=== PATIENT | male | born 1950 | race Hispanic/Latino ===

== ENCOUNTER 2017-10-02 14:04 | Inpatient (IN) | payer MEDICARE, OTHER ==
--- NOTE | 2017-10-02 14:18 | ED PDOC ---
Arrival/HPI - General Chief Complaint: Altered Mental Status Time Seen by Provider: 10/02/17 14:10 Historian: Patient, EMS EM Caveat: Altered Mental Status - History of Present Illness Narrative History of Present Illness (Text): 10/02/17 14:12 pt p/w + AMS prior to ED arrival; per EMS, pt's son contacted EMS due to pt's decr mentation, unable to talk, difficult to arouse; pt arrived to the ED awake/ alert; pt is conversant; pt did not remember what happen; pt states he was watching TV prior to ED arrival; pt states he was mildly nausea prior to ED arrival; pt states no fever/chills/sweats, no pain, no cp/abd pain, no sob, no vomiting, pt does not feel like he is having a hard time speaking; pt states no urinary/bowel changes; pt arrived to ED for further eval; pt's without other complaints. Spouse arrived at bedside, provided further information - states patient missed his dialysis 2 days ago b/c he was too weak and didnt feel well; noted 1 episode of dark/chocolate colored stool 2 days ago; pt has been having mid- epigastric pain/cramps off and on over the last few weeks. pt has had starring spells for a while now and sees Dr Holland for possible seizures (complex/partial) pt denied other complaints PCP: DR Mejia pt is left hand dominate pt with multiple previous CVAs ESRD, on dialysis M/W/F, pt is due for dialysis at 2pm Time/Duration: Prior to Arrival Symptom Onset: Sudden Symptom Course: Improving Activities at Onset: Rest Context: Home Past Medical History - Provider Review Nursing Documentation Reviewed: Yes - Travel History Have you recently traveled outside [place] w/in the past 3 mons?: No - Past History Past History: No Previous - Infectious Disease Hx of Infectious Diseases: None - Cardiac Hx Cardiac Disorders: (angioplasty 1989) Hx Hypertension: Yes - Neurological Hx Neurological Disorder: Yes (short term memory loss) HX Cerebrovascular Accident: Yes (around 1991 right side weakness) Hx Dizziness: Yes (syncope) Hx Transient Ischemic Attacks (TIA): Yes (several) Other/Comment: poor hand eye coordination, pt suffered heat stroke and when brought to the hospital was found to have had several small strokes in the past , pt was unaware, headaches, slurred speech, peripheral neuropathy, right side paralysis, numbness. - HEENT Hx HEENT Disorder: Yes (ringing in the ears) - Renal Date of Last Dialysis Treatment: 12/22/13 - Endocrine/Metabolic Hx Endocrine Disorders: Yes Hx Diabetes Mellitus Type 1: Yes - Integumentary Other/Comment: bottom of feet and toes have dryed brown skin bilateral - Musculoskeletal/Rheumatological Hx Falls: No - Genitourinary/Gynecological Hx Genitourinary Disorders: Yes - Psychiatric Hx Substance Use: No - Surgical History Other/Comment: hd cath implanted in 2009 for possible dialysis right arm - Suicidal Assessment Feels Threatened In Home Enviroment: No Family/Social History - Physician Review Nursing Documentation Reviewed: Yes Family/Social History: No Known Family HX Smoking Status: Light Smoker < 10 Cigarettes Daily Hx Alcohol Use: No Hx Substance Use: No Hx Substance Use Treatment: No Allergies/Home Meds Allergies/Adverse Reactions: Allergies No Known Allergies Allergy (Verified 10/02/17 14:18) Home Medications: Home Meds Medication Instructions Recorded Confirmed Enalapril Maleate [Enalapril] 20 mg PO BID 10/22/11 10/02/17 Meclizine HCl [Antivert/25] 25 mg PO PRN PRN 10/22/11 10/22/11 Tamsulosin [Flomax] 0.4 mg PO DAILY 10/22/11 10/02/17 Cinacalcet [Sensipar] 30 mg PO DAILY 10/02/17 10/02/17 Fenofibrate Nanocrystallized 160 mg PO DAILY 10/02/17 10/02/17 [Triglide] Ibuprofen [Motrin Tab] 800 mg PO PRN PRN 10/02/17 10/02/17 Lamotrigine [Lamictal (Blue)] 50 mg PO DAILY 10/02/17 10/02/17 Niacin [Niacin ER] 500 mg PO DAILY 10/02/17 10/02/17 Ramsey-3S/Dha/Epa/Fish Oil [Fish 1 each PO DAILY 10/02/17 10/02/17 Oil 1,200 mg Softgel] Pravastatin Sodium [Pravachol] 40 mg PO DAILY 10/02/17 10/02/17 Sevelamer Carbonate [Renvela] 800 mg PO TID 10/02/17 10/02/17 Ubidecarenone [Coenzyme Q10] 400 mg PO DAILY 10/02/17 10/02/17 Review of Systems - Physician Review All systems were reviewed & negative as marked: Yes - Review of Systems Constitutional: Normal Eyes: Normal ENT: Normal Respiratory: Normal Cardiovascular: Normal Gastrointestinal: Nausea. absent: Abdominal Pain, Vomiting Genitourinary Male: Normal Musculoskeletal: Normal Skin: Normal Neurological: Other (altered mental status) Endocrine: Normal Hemo/Lymphatic: Normal Physical Exam - Physical Exam Narrative Physical Exam (Text): 10/02/17 14:15 General: alert/awake, GCS = 14, oriented x 2 (not to date/time), resting in bed , mildly uncomfortable, cooperative, interactive; NAD Head: NC/AT; mild bi-temporal wasting EYE: PERRLA, EOMI, sclera anicteric, no nystagmus, no photophobia; visual field intact b/l Facial: WNL Oral: uvula/tongue are midline, mild dry oral mucosa; no exudate/lesions, no drooling/stridor, no dysphonia; poor dentitions NECK: intact ROM, no midline tenderness, no nuchal rigidity, no meningeal signs ; no step off Chest: CTA b/l, no w/r/r; no tachypenia, no accessory muscle use noted; coarse breath sounds bibasilar Cardiac: +S1, +S2, no m/r/r, no tachycardia Abdominal: +BS, soft/nd/nt, well nourished patient; no masses/rebound/guarding/ rigidity; no friend's sign, no mcburney's point tenderness : external hemorrhoids noted (non-thrombosed, non-indurated); guaic +, no gross dark/bloody stool noted Extremities: intact ROM upper left/lower left, strength 5/5 grossly intact on left sided limbs, neurovasc intact b/l; NOT ambulatory; + decr ROM to right upper/lower extremity; + dialysis shunt placed to right forearm (good thrill noted) BACK: no step off, no midline tenderness, NO crepitus, no gross deformities noted; Intact ROM SKIN: cap refill < 1 sec, no ulcerations, no petechiae, no rashes; mild pallor NEURO: CNII-XII WNL, + (right) facial asymmetries, + slurr speech, oriented x 2 NIH stroke scale ~ 10-11 Psych: normal insight, normal/flat affect; follows command with ease Vital Signs Reviewed: Yes Vital Signs Temp Pulse Resp BP Pulse Ox 10/02/17 17:15 97.7 F 18 97 10/02/17 16:52 97.7 F 78 18 123/78 100 10/02/17 14:35 97.2 F L 79 17 125/56 L 99 Temperature: Afebrile Blood Pressure: Normal Pulse: Regular Respiratory Rate: Normal Appearance: Positive for: Well-Appearing, Non-Toxic, Uncomfortable. No: Comfortable, Ill-Appearing Pain Distress: None Mental Status: Positive for: other (alert/awake, oriented x 2 (not to date/time) ) - Systems Exam Head: Present: Atraumatic, Normocephalic Medical Decision Making ED Course and Treatment: 10/02/17 14:15 Impression: AMS i have consider all the differential diagnosis regarding pt's chief medical complaints/clinical findings, including but are not limited to: AMS A/P: AMS - labs - iv - xray, ct - ua - supportive care - observe/reevaluation 1430 i was notified by nursing staff patient with starring spells with arousal, pt awoke and became responsive, return to baseline pt denied any pain currently awaiting family arrival 1455 i spoke to pt's son, but he has not seen his father nor spoke to him for ~ 3 months and does not know his most updated medical condition, awaiting pt's to arrive 10/02/17 15:[address] Skaggs who was made aware of patient's emergent complaints, diagnostic finds, and emergency department management/txt. Is agreeable with emergency department admission and will admit patient for further evaluation. Would like to consult neurologist, likely Dr. Holland; GI dr Barrios, and nephro Dr Green 10/02/17 15:[address] Skaggs who was made aware of the updates. 1545 pt's spouse is at bedside, provided further information is made aware of pt's medical results agrees with admission agrees with consent for blood transfusion 10/02/17 16:[address] Holland, made aware, recommends continue eval, recommends another MRI, would like to maintain lamictal at 100mg BID 1620 pt/family are made aware of pt's medical results agrees with admission 1630 Dr Green contacted, will dialyze patient Re-evaluation Time: 16:16 Reassessment Condition: Improving,but remains with symptoms - Critical Care Critical Care Minutes: 45 minutes Critical Care Time: Excluding Proc Time Narrative Critical Care (Text): 10/02/17 16:16 critical care time: 45min, excluding procedure time, excluding time teaching residents/students/mid-level providers; including initial eval/diagnosis, diagnostic interpretation, re-eval, consultations, final disposition - Lab Interpretations Lab Results: 10/02/17 14:42 10/02/17 14:42 Lab Results 10/02/17 15:31: pO2 38, VBG pH 7.31 L, VBG pCO2 53.0, VBG HCO3 26.7, VBG Total CO2 28.3 H, VBG O2 Sat (Calc) 77.3 H, VBG Base Excess -0.4 L, VBG Potassium 4.4 , Glucose 95, Lactate 0.9, FiO2 21.0, Sodium 130.0 L, Chloride 94.0 L, Venous Blood Potassium 4.4 10/02/17 15:30: Blood Type A POSITIVE, Antibody Screen Negative, Crossmatch See Detail, BBK History Checked No verified bt 10/02/17 14:42: Salicylates < 1 L, Acetaminophen < 10.0 L 10/02/17 14:42: Ammonia 17 10/02/17 14:42: TSH 3rd Generation 1.26, Alcohol, Quantitative < 10 10/02/17 14:42: Sodium 132, Potassium 4.5, Chloride 89 L, Carbon Dioxide 24, Anion Gap 24 H, BUN 149 H*, Creatinine 10.6 H*, Est GFR ( Amer) 6, Est GFR (Non-Af Amer) 5, Random Glucose 99, Calcium 9.8, Phosphorus 4.8 H, Magnesium 3.1 H, Total Bilirubin 0.3, AST 17, ALT 16, Alkaline Phosphatase 60, Lactate Dehydrogenase 263 L, Total Creatine Kinase 50, Troponin I 0.01, Total Protein 6.0, Albumin 3.5, Globulin 2.5, Albumin/Globulin Ratio 1.4 10/02/17 14:42: PT 10.7, INR 0.94, APTT 26.4 10/02/17 14:42: WBC 6.7 D, RBC 2.19 L, Hgb 6.7 L*, Hct 20.3 L*, MCV 92.7, MCH 30.6, MCHC 33.0, RDW 15.0 H, Plt Count 250, MPV 9.1, Gran % 71.9 H, Lymph % ( Auto) 23.0, [place] % (Auto) 3.6, Eos % (Auto) 1.2 L, Baso % (Auto) 0.3, Gran # 4.78, Lymph # (Auto) 1.5, [place] # (Auto) 0.2, Eos # (Auto) 0.1, Baso # (Auto) 0.02 10/02/17 14:08: POC Glucose (mg/dL) 102 I have reviewed the lab results: Yes Interpretation: Abnormal lab values (decr H/H; elevated BUN/creat) - RAD Interpretation Narrative RAD Interpretations (Text): 10/02/17 16:31 Date of service: 10/02/2017 PROCEDURE: CT HEAD WITHOUT CONTRAST. HISTORY: AMS COMPARISON: 12/21/2013 TECHNIQUE: Axial computed tomography images were obtained through the head/brain without intravenous contrast. Radiation dose: Total exam DLP = 767 mGy-cm. This CT exam was performed using one or more of the following dose reduction techniques: Automated exposure control, adjustment of the mA and/or kV according to patient size, and/or use of iterative reconstruction technique. FINDINGS: HEMORRHAGE: No intracranial hemorrhage. BRAIN: There is a large dense calcification on the left side of the pineda. This is unchanged. Severe chronic microvascular changes are seen in both hemispheres. There is moderate atrophy. VENTRICLES: Unremarkable. No hydrocephalus. CALVARIUM: Unremarkable. PARANASAL SINUSES: Unremarkable as visualized. No significant inflammatory changes. MASTOID AIR CELLS: Unremarkable as visualized. No inflammatory changes. OTHER FINDINGS: None. IMPRESSION: No acute intracranial findings Date of service: 10/02/2017 HISTORY: AMS COMPARISON: 12/22/2013. FINDINGS: LUNGS: No active pulmonary disease. PLEURA: No significant pleural effusion identified, no pneumothorax apparent. CARDIOVASCULAR: Normal. OSSEOUS STRUCTURES: No significant abnormalities. VISUALIZED UPPER ABDOMEN: Normal. OTHER FINDINGS: None. IMPRESSION: No active disease. No significant interval change compared to the prior examination(s). Rotation accentuates pulmonary vascular prominence and cardiac size. Radiology Orders: 10/02/17 14:18 HEAD W/O CONTRAST [CT] Stat 10/02/17 14:19 CHEST PORTABLE [RAD] Stat Package Reinspector: Radiologist - EKG Interpretation EKG Interpretation (Text): 10/02/17 14:37 Sinus rhythm at 80 bpm, Normal axis, + ectopy, no st changes, min voltage criteria LVH, Borderline EKG; no gross changes compare with old ekg 11/2013 Interpreted by ED Physician: Yes Type: 12 lead EKG Comparison: Similar to previous EKG - Medication Orders Current Medication Orders: Discontinued Medications Pantoprazole Sodium (Protonix Inj) 40 mg IVP STAT STA Stop: 10/02/17 15:22 Last Admin: 10/02/17 16:08 Dose: 40 mg IVP Administration Document 10/02/17 16:08 [email or web address] (Rec: 10/02/17 16:08 [email or web address] [id number]) Charges for Administration # of IVP Administrations 1 NIHSS Stroke Scale 3 - Date/Time Evaluation Performed Date Performed: 10/02/17 Time Performed: 14:15 When Was NIHSS Performed: Baseline - How Severe is the Stroke Level of Consciousness: 1=Drowsy LOC to Questions: 0=Both comments correct LOC to commands: 0=Obeys both correctly Best Gaze: 0=Normal Visual: 0=No visual loss Facial: 2=Partial (lower face paralysis) Motor Arm - Left: 0=No drift Motor Arm - Right: 2=Falls before 10 sec Motor Leg - Left: 0=No drift Motor Leg - Right: 4=No movement Limb Ataxia: 0=Absent Sensory: 0=Normal Best Language: 1=Mild to moderate aphasia Dysarthia: 1=Mild to moderate slurring Extinction & Inattention (Neglect): 0=Normal, no object Score: 11 - Scribe Statement The provider has reviewed the documentation as recorded by the Scribe Radha Zamudio All medical record entries made by the Scribe were at my direction and personally dictated by me. I have reviewed the chart and agree that the record accurately reflects my personal performance of the history, physical exam, medical decision making, and the department course for this patient. I have also personally directed, reviewed, and agree with the discharge instructions and disposition. Disposition/Present on Arrival - Present on Arrival Any Indicators Present on Arrival: No History of DVT/PE: No History of Uncontrolled Diabetes: No Urinary Catheter: No History of Decub. Ulcer: No History Surgical Site Infection Following: None - Disposition Have Diagnosis and Disposition been Completed?: Yes Diagnosis: GI bleed, Acute anemia, Altered mental status, unspecified, ESRD (end stage renal disease) on dialysis, Epigastric pain, Weakness Disposition: HOSPITALIZED Disposition Time: 16:00 Patient Plan: Admission, Telemetry Patient Problems: Current Active Problems Problem Status Onset GI bleed Acute Acute anemia Acute Altered mental status, unspecified Acute ESRD (end stage renal disease) on dialysis Acute Epigastric pain Acute Weakness Acute Condition: STABLE
[2017-10-02 15:00] LABS: BASO # 0.02 K/mm3 (0.0-2.0); BASO % 0.3 % (0.0-3.0); EOS # 0.1 (0.0-0.7); EOS % 1.2 % (1.5-5.0); GRAN # 4.78 (1.4-6.5); GRAN % 71.9 % (50.0-68.0); LYMPH # 1.5 (1.2-3.4); MEAN CELL VOLUME 92.7 fl (80.0-105.0); MEAN CORPUSCULAR HEMOGLOBIN 30.6 pg (25.0-35.0); MEAN PLATELET VOLUME 9.1 fl (7.0-11.0); MONO # 0.2 (0.1-0.6); MONO % 3.6 % (1.0-6.0); RBC 2.19 10^6/uL (3.5-6.1); WHITE BLOOD COUNT 6.7 10^3/ul (4.5-11.0)
[2017-10-02 15:03] LABS: HEMOGLOBIN 6.7 g/dL (14.0-18.0)
[2017-10-02 15:07] LABS: INR 0.94; PROTHROMBIN TIME 10.7 SECONDS (9.4-12.5)
[2017-10-02 15:08] LABS: PARTIAL THROMBOPLASTIN TIME 26.4 Seconds (25.1-36.5)
[2017-10-02 15:13] LABS: ALB/GLOB RATIO 1.4 (1.1-1.8); ALBUMIN 3.5 g/dL (3.0-4.8); CALCIUM 9.8 mg/dL (8.4-10.5)
[2017-10-02 15:14] LABS: ACETAMINOPHEN < 10.0 ug/ml (10.0-20.0); SALICYLATE < 1 mg/dL (2.0-20.0)
[2017-10-02 15:22] LABS: TROPONIN I 0.01 ng/mL
[2017-10-02 15:37] LABS: VENOUS BLOOD GAS BASE EXCESS -0.4 mmol/L (0.0-2.0); VENOUS BLOOD GAS PO2 38 mm/Hg (30-55); VENOUS BLOOD PH 7.31 (7.32-7.43)
--- NOTE | 2017-10-02 15:48 | CT ---
Date of service: 10/02/2017 PROCEDURE: CT HEAD WITHOUT CONTRAST. HISTORY: AMS COMPARISON: 12/21/2013 TECHNIQUE: Axial computed tomography images were obtained through the head/brain without intravenous contrast. Radiation dose: Total exam DLP = 767 mGy-cm. This CT exam was performed using one or more of the following dose reduction techniques: Automated exposure control, adjustment of the mA and/or kV according to patient size, and/or use of iterative reconstruction technique. FINDINGS: HEMORRHAGE: No intracranial hemorrhage. BRAIN: There is a large dense calcification on the left side of the pineda. This is unchanged. Severe chronic microvascular changes are seen in both hemispheres. There is moderate atrophy. VENTRICLES: Unremarkable. No hydrocephalus. CALVARIUM: Unremarkable. PARANASAL SINUSES: Unremarkable as visualized. No significant inflammatory changes. MASTOID AIR CELLS: Unremarkable as visualized. No inflammatory changes. OTHER FINDINGS: None. IMPRESSION: No acute intracranial findings
--- NOTE | 2017-10-02 17:17 | RAD ---
Date of service: 10/02/2017 HISTORY: AMS COMPARISON: 12/22/2013. FINDINGS: LUNGS: No active pulmonary disease. PLEURA: No significant pleural effusion identified, no pneumothorax apparent. CARDIOVASCULAR: Normal. OSSEOUS STRUCTURES: No significant abnormalities. VISUALIZED UPPER ABDOMEN: Normal. OTHER FINDINGS: None. IMPRESSION: No active disease. No significant interval change compared to the prior examination(s). Rotation accentuates pulmonary vascular prominence and cardiac size.
--- NOTE | 2017-10-02 18:08 | CON ---
Copied To: Tristen Holland MD Attending MD: Tristen Holland MD DATE: 10/02/2017 NEUROLOGY CONSULTATION CHIEF COMPLAINT: Confusion. 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 He is guaiac positive. He was having some questionable staring spells and he is on lamotrigine for seizure prophylaxis. He recently had an EEG which showed no epileptiform activity except some occasional isolated sharp waves in the left upper lobe and when he stressed, he had some breakthrough seizures. His CAT scan of head showed no acute intracranial abnormality. His hemoglobin is 6.7 with a hematocrit of 20.3 which is low indicating possibly underlying GI bleed. He also has elevated BUN and creatinine from his baseline and he has not gotten dialysis, so he will need emergent dialysis because it make him mildly encephalopathic slightly. PAST MEDICAL HISTORY: As above. SOCIAL HISTORY: No illicit drug use, smoking, or EtOH abuse. ALLERGIES: NO KNOWN DRUG ALLERGIES. MEDICATIONS: Reviewed by the nurse per reconciliation sheet. FAMILY HISTORY: Noncontributory. REVIEW OF SYSTEMS: A 14-point review of systems is negative except as in the HPI. PHYSICAL EXAMINATION: VITAL SIGNS: Temperature 97.2, pulse rate 79, blood pressure 125/56, respiratory rate 17, and oxygen saturation 99% by room air. GENERAL: The patient is sitting up in bed, in no acute distress and has a pale conjunctivae. HEENT: Head is atraumatic and normocephalic. PERRLA. Extraocular muscles intact. NECK: Supple. No JVD. No adenopathy noted. LUNGS: Clear to auscultation. No adventitious sounds. HEART: S1 and S2. Normal rate and rhythm. No murmurs, rubs, or gallops. ABDOMEN: Soft, nontender, and nondistended. Bowel sounds present. EXTREMITIES: No clubbing, no cyanosis. Peripheral pulses 2+ felt bilaterally. NEUROLOGIC: The patient is alert and oriented to person and place, not much of month or year. Recall after 5 minutes is 0 out of 3. Poor attention span and slow thought process. He is hard of hearing. He has a right arm AV fistula. Cranial nerves II through XII intact. Speech is hypophonic, but no aphasia noted. Motor exam: Has residual right-sided 5-/5 right-sided weakness from old CVA, left side is intact. Tone is slightly increased throughout. Sensory exam: Light touch and pinprick decreased up to the calves bilaterally. Decreased vibration of the toes. DTRs are 2+ throughout and absent at the ankles and knees bilaterally. Toes are downgoing bilaterally. Uses walker or wheelchair. 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 every morning and 50 mg p.o. at bedtime, comes in for generalized weakness, staring like spells and had episodes of dark colored stools and has missed his dialysis due to generalized weakness for the past two days, found to have a hemoglobin of 6.8 and low hematocrit with elevated BUN and creatinine from his baseline indicating needs for emergent dialysis possibly from his chronic kidney disease. At this time, his confusion could be secondary to a questionable complex partial seizure from acute anemia as well as acute elevation of his BUN and creatinine since he has not had any dialysis/encephalopathy. At this time, we recommend; 1. Nephrology evaluation for possible dialysis since he has missed it for two days. 2. Monitor electrolytes and correct accordingly. 3. He should be on Lamictal 100 mg p.o. b.i.d. for seizure prophylaxis. 4. MRI of the brain without contrast to assess for any acute intracranial abnormalities. 5. Keep his blood sugar between 140 and 180. 6. GI consult for possible GI bleed given that he is guaiac positive as well as low hemoglobin of 6.8 that needs to transfuse 2 units of PRBC. Case was discussed with the ED physician. Thank you for this consult. Tristen Holland MD
--- NOTE | 2017-10-02 19:22 | CARD ---
APPROVED REPORT Date of service: 10/02/2017 EKG Measurement Heart [id number] <Conclusion> Sinus rhythm with premature supraventricular complexes Otherwise normal ECG
[2017-10-02 21:02] LABS: HEPATITIS B SURFACE AG Negative (NEGATIVE)
[2017-10-02 21:07] LABS: HEPATITIS B CORE AB NEGATIVE (NEGATIVE)
[2017-10-02 23:27] VITALS: BMI 26.1
[2017-10-02] MEDS ORDERED: Pneumococcal 23-Valent Vaccine IM ONE (23:28)
[2017-10-03 06:32] LABS: MEAN CELL VOLUME 90.1 fl (80.0-105.0); MEAN CORPUSCULAR HEMOGLOBIN 30.4 pg (25.0-35.0); MEAN CORPUSCULAR HGB CONC 33.8 g/dl (31.0-37.0); MEAN PLATELET VOLUME 8.6 fl (7.0-11.0); RBC 2.63 10^6/uL (3.5-6.1); RED CELL DISTRIBUTION WIDTH 16.5 % (11.5-14.5); WHITE BLOOD COUNT 5.9 10^3/ul (4.5-11.0)
[2017-10-03 06:44] LABS: ALB/GLOB RATIO 1.2 (1.1-1.8); CALCIUM 9.1 mg/dL (8.4-10.5)
[2017-10-03 06:49] LABS: TROPONIN I 0.03 ng/mL
[2017-10-03] MEDS ORDERED: Pantoprazole 40mg/100mL NS 40 MG/100 ML BAG IVPB SCH (11:45)
--- NOTE | 2017-10-03 12:32 | CP.PCM.CON ---
History of Present Illness - History of Present Illness History of Present Illness: PGY5 Initial GI Consult Matt Camacho is a 67M w/ hx of ESRD, s/p CVA, HTN, HL who presents to the ED after family noticed his change in mental status. As per EMR, pt was his normal self watching TV prior to the change. Pt has dysarthria so communication was difficult, but pt was able to answer yes or no questions. Upon arrival, pt was noted to have a hgb of 6.7. Baseline hgb is unknown. Pt does not report any hx of recent GI bleed including BRBPR or hematemesis. Pt also denied any melena. Upon arrival, he was given 2 units of PRBC with an increase of hgb to ~ 8. Pt did not have any overnight events. Denied any abd pain. PMHx: DM, HTN, ESRD, Hemorrhagic CVA, anemia, seizures? PSHx: fistula placement Family hx: unknown Social Hx: unknown Endo hx: denies ROS: could not be 2/2 dysarthria Past Patient History - Infectious Disease Hx of Infectious Diseases: None - Past Social History Smoking Status: Light Smoker < 10 Cigarettes Daily - CARDIAC Hx Cardiac Disorders: (angioplasty 1989) Hx Hypertension: Yes - NEUROLOGICAL Hx Neurological Disorder: Yes (short term memory loss) HX Cerebrovascular Accident: Yes (around 1991 right side weakness) Hx Dizziness: Yes (syncope) Hx Transient Ischemic Attacks (TIA): Yes (several) Other/Comment: poor hand eye coordination, pt suffered heat stroke and when brought to the hospital was found to have had several small strokes in the past , pt was unaware, headaches, slurred speech, peripheral neuropathy, right side paralysis, numbness. - HEENT Hx HEENT Problems: Yes (ringing in the ears) - RENAL Date of Last Dialysis Treatment: 09/25/17 - ENDOCRINE/METABOLIC Hx Endocrine Disorders: Yes Hx Diabetes Mellitus Type 1: Yes - INTEGUMENTARY Other/Comment: bottom of feet and toes have dryed brown skin bilateral - MUSCULOSKELETAL/RHEUMATOLOGICAL Hx Falls: No - GENITOURINARY/GYNECOLOGICAL Hx Genitourinary Disorders: Yes - PSYCHIATRIC Hx Substance Use: No - SURGICAL HISTORY Other/Comment: hd cath implanted in 2009 for possible dialysis right arm Meds Allergies/Adverse Reactions: Allergies Allergy/AdvReac Type Severity Reaction Status Date / Time No Known Allergies Allergy Verified 10/02/17 14:18 - Medications Medications: Current Medications Pantoprazole Sodium (Protonix 40mg Ivpb) 40 mg in 100 mls @ 10 mls/hr IVPB .Q10H KG Physical Exam - Constitutional Appears: Well, No Acute Distress - Head Exam Head Exam: ATRAUMATIC, NORMOCEPHALIC - Eye Exam Eye Exam: Normal appearance - ENT Exam ENT Exam: Mucous Membranes Moist, Normal Exam - Neck Exam Neck exam: Positive for: Normal Inspection - Respiratory Exam Respiratory Exam: Clear to Auscultation Bilateral, Rales, Rhonchi, NORMAL BREATHING PATTERN - Cardiovascular Exam Cardiovascular Exam: REGULAR RHYTHM, +S1, +S2 - GI/Abdominal Exam GI & Abdominal Exam: Normal Bowel Sounds, Rigid, Soft. absent: Organomegaly, Rebound - Rectal Exam Rectal Exam: Black Stool - Extremities Exam Extremities exam: Positive for: pedal edema. Negative for: joint swelling - Neurological Exam Neurological exam: Alert - Psychiatric Exam Additional comments: could not assess 2/2 dysarthria - Skin Skin Exam: Dry, Intact, Normal Color, Warm Results - Vital Signs Recent Vital Signs: Last Vital Signs Temp 97.7 F 10/03/17 11:59 Pulse 77 10/03/17 11:59 Resp 21 10/03/17 11:59 BP 152/67 H 10/03/17 11:59 Pulse Ox 97 10/03/17 06:00 - Labs Result Diagrams: 10/03/17 06:00 10/03/17 06:00 Labs: Laboratory Results - last 24 hr 10/02/17 10/03/17 10/03/17 16:40 06:00 06:00 WBC 5.9 RBC 2.63 L Hgb 8.0 L Hct 23.7 L MCV 90.1 MCH 30.4 MCHC 33.8 RDW 16.5 H Plt Count 191 MPV 8.6 Sodium 137 Potassium 4.0 Chloride 98 Carbon Dioxide 23 Anion Gap 20 BUN 92 H Creatinine 7.7 H* D Est GFR ( Amer) 9 Est GFR (Non-Af Amer) 7 Random Glucose 79 Calcium 9.1 Total Bilirubin 0.3 AST 26 ALT 17 Alkaline Phosphatase 51 Troponin I 0.03 D Total Protein 5.4 L Albumin 3.0 Globulin 2.4 Albumin/Globulin Ratio 1.2 Blood Type Confirm A POSITIVE Assessment & Plan - Assessment and Plan (Free Text) Assessment: Matt Camacho is a 67M w/ hx of ESRD, s/p CVA, HTN, HL who presents to the ED after family noticed his change in mental status Melena, r/o upper GI source, DDX: PUD, AVM, diverticular, malignancy Normocytic Anemia 2/2 melena, vs chronic anemia 2/2 ESRD hx of CVA fluid overload ESRD Plan: -keep hgb >8 -transfuse as needed -cannot do EGD today 2/2 recent regular diet -hgb responded to blood -start on clear liquid diet -start protonix drip at 4mg/hr -will continue to monitor -repeat cbc q 12 hrs D/W Dr. Barrios
--- NOTE | 2017-10-03 23:12 | HP ---
Copied To: Alley Garces MD Attending MD: Alley Garces MD DATE OF EXAM: 10/03/2017 HISTORY OF PRESENT ILLNESS: Mr. Mitchell is [id number] male admitted to the hospital with altered mental status. He has history of pontine bleed and also residual weakness from that. He was watching TV, incidentally felt nauseous, not arousable. In the ED, he was responsive, alert, oriented. He has also history of complex partial seizure, being followed by Dr. Holland. Reports history of melena 2 days ago. Hemoglobin was 6 g/dL on arrival in the ED. He also has end-stage renal disease, on hemodialysis. He missed 2 sessions of dialysis because he was feeling weak. CT head unremarkable. PAST MEDICAL HISTORY: Coronary artery disease, end-stage renal disease, CVA, right-sided residual weakness, dizziness, multiple TIAs, coronary artery disease, status post angioplasty, diabetes mellitus type 2. PAST SURGICAL HISTORY: Fistula for renal dialysis. FAMILY HISTORY: Noncontributory. PERSONAL HISTORY: Light smoker, smokes less than 10 cigarettes a day. No history of substance abuse. ALLERGIES: NO KNOWN DRUG ALLERGIES. HOME MEDICATIONS: Enalapril 20 mg p.o. b.i.d., meclizine 25 mg p.r.n., Flomax 0.4 mg daily, Sensipar 30 mg daily, fenofibrate 160 mg p.o. daily, Motrin p.r.n., Niacin 500 mg p.o. daily, Pravachol 40 mg p.o. daily, sevelamer 800 mg p.o. t.i.d., coenzyme Q. REVIEW OF SYSTEMS: As per HPI. Rest of 12-point review of systems reviewed negative. PHYSICAL EXAMINATION: GENERAL: Comfortable in bed, in no acute distress. VITAL SIGNS: Temperature 97.2, heart rate 79 per minute, respiratory rate 17 per minute, blood pressure 125/78, pulse ox is 100% on room air. HEENT: Pallor positive. NECK: No lymphadenopathy. CHEST: Air entry present and equal bilaterally. No added sounds. CARDIOVASCULAR: S1, S2 normal. No murmur. No gallop. ABDOMEN: Soft, nontender. No hepatosplenomegaly. EXTREMITIES: No edema. MENTAL STATUS: Awake, alert, oriented. ____, right-sided residual weakness. LABORATORY DATA: White count 6.7, hemoglobin 6.7, hematocrit 20.3, platelet 250. Sodium 132, potassium 4.5, BUN 149, creatinine 10.6, glucose 99. ASSESSMENT AND PLAN: Gastrointestinal bleed, severe anemia, end-stage renal disease, on hemodialysis; altered mental status; epigastric pain; weakness; coronary artery disease. PLAN: He will be admitted to the hospital, 2 units of blood transfusion given. Hemoglobin improved to 8.7 g/dL. GI consultation with Dr. Barrios requested. Neuro consultation with Dr. Holland requested. He underwent emergent dialysis today, creatinine declined to 7.7. We will continue current medication, enalapril 20 mg p.o. b.i.d., Lamictal 50 mg daily, meclizine 25 mg p.r.n., Niacin 500 mg daily, pravastatin 40 mg daily, Renagel 800 mg p.o. t.i.d., Flomax 0.4 mg daily, Sensipar 30 mg daily. Continue to monitor blood count closely. Alley Garces MD
--- NOTE | 2017-10-04 08:31 | CON ---
Copied To: Tanya Green MD Attending MD: Tanya Green MD DATE: 10/03/2017 REASON FOR CONSULTATION: Altered mental status, anemia, ESRD. HISTORY OF PRESENTING ILLNESS: A 67-year-old male, known to me from outpatient hemodialysis. The patient was brought to the emergency room on 10/02/2017 by his because of confusion, lethargy, weakness. In the emergency room, he had a CT of his head, which was negative. His initial blood work showed his hemoglobin to be 6.7. The patient received 2 units of blood and dialysis yesterday. The patient had missed his dialysis on Thursday. Currently, he receiving dialysis today. He is awake. He is alert. It is difficult to follow what he is saying. PAST MEDICAL AND SURGICAL HISTORY: Pontine bleed with residual weakness, CAD, hypertension, CVA, ESRD, NIDDM, chronic anemia, secondary hyperparathyroidism. FAMILY HISTORY: Noncontributory. SOCIAL HISTORY: Smoker. No alcohol use, no IV drug abuse. ALLERGIES: NO KNOWN DRUG ALLERGIES. MEDICATIONS AT HOME: Enalapril 20 b.i.d., meclizine, Flomax, Sensipar 30, fenofibrate, Motrin as needed, niacin 500 daily, Pravachol 40, sevelamer 800, coenzyme Q. REVIEW OF SYSTEMS: All systems are reviewed, pertinent positives as mentioned in the history of presenting illness, rest unremarkable. PHYSICAL EXAMINATION: GENERAL: Elderly male lying in bed in the dialysis unit, in no acute distress at this time. VITAL SIGNS: Blood pressure 152/67, heart rate 77, respiratory rate 21, temperature 97.7. HEENT: Normocephalic, atraumatic, positive pallor. NECK: Supple, no JVD. LUNGS: Bilateral equal air entry, bilateral equal expansion, no rales. CARDIAC: S1 and S2, regular rate and rhythm, no murmur, no rub. ABDOMEN: Soft, nondistended, nontender, bowel sounds present. EXTREMITIES: No lower extremity edema. INTAKE AND OUTPUT: Not charted. LABORATORY DATA: WBC 5.9, hemoglobin 8, hematocrit 24, platelets 191. Sodium 137, potassium 4, chloride 98, CO2 of 23, BUN 92, creatinine 7.7, glucose 79, calcium 9.1, total protein 5.4, albumin 3. CURRENT MEDICATIONS: Meclizine, Flomax, Lamictal, Lipitor, niacin, Protonix, sevelamer, Sensipar, lisinopril. ASSESSMENT: 1. Acute on chronic anemia, history of melena, suspect GI bleed. 2. End-stage renal disease. 3. Hypertension. 4. Coronary artery disease. 5. History of cerebrovascular accident. PLAN: 1. Monitor H and H. 2. Transfuse another unit on dialysis on Thursday as needed. 3. GI evaluation. 4. Continue phosphate binders and Sensipar. 5. Continue outpatient medications. Tanya Green MD
[2017-10-04 10:12] LABS: BASO # 0.01 K/mm3 (0.0-2.0); BASO % 0.2 % (0.0-3.0); EOS % 0.8 % (1.5-5.0); GRAN # 3.43 (1.4-6.5); GRAN % 69.4 % (50.0-68.0); HEMOGLOBIN 8.7 g/dL (14.0-18.0); LYMPH # 1.2 (1.2-3.4); LYMPH % 24.9 % (22.0-35.0); MEAN CELL VOLUME 91.3 fl (80.0-105.0); MEAN CORPUSCULAR HEMOGLOBIN 30.3 pg (25.0-35.0); MEAN CORPUSCULAR HGB CONC 33.2 g/dl (31.0-37.0); MEAN PLATELET VOLUME 8.7 fl (7.0-11.0); MONO # 0.2 (0.1-0.6); MONO % 4.7 % (1.0-6.0); RBC 2.87 10^6/uL (3.5-6.1); RED CELL DISTRIBUTION WIDTH 16.3 % (11.5-14.5); WHITE BLOOD COUNT 4.9 10^3/ul (4.5-11.0)
[2017-10-04 10:28] LABS: CALCIUM 9.6 mg/dL (8.4-10.5)
[2017-10-04] MEDS: NIACIN 500 MG PO SCH (10:44)
--- NOTE | 2017-10-04 12:01 | PN ---
Copied To: Boone Morris MD Attending MD: Boone Morris MD DATE: 10/04/2017 This visit is for Dr. Barrios, Dr. Morris covering. SUBJECTIVE: The patient is comfortable, lying in bed. Nursing reports scant amount of melena. The patient currently denies any abdominal pain, nausea, vomiting. PHYSICAL EXAMINATION: VITAL SIGNS: Reveal temperature of 97.6, blood pressure 147/61, heart rate of 76. HEENT: Reveals sclerae to be white. Conjunctivae pale. NECK: Supple. CHEST: Reveals distant breath sounds. HEART: Reveals regular rate and rhythm. ABDOMEN: Soft, nontender. EXTREMITIES: Show no edema. He does have an AV fistula in his left arm. LABORATORY DATA: Reveal BUN 50, down from 149; creatinine 5.4; blood sugar 216. CBC reveals hemoglobin of 8.7, which is up from an admitting hemoglobin of 6.7 after 2 units of packed red blood cells. White blood cell count 6.7. IMPRESSION: A 67-year-old male, admitted to the hospital with melena from presumed upper GI bleed; history of end-stage renal disease, on hemodialysis. RECOMMENDATIONS: 1. Continues to follow serial hematocrits. 2. Continue PPI. 3. I will schedule the patient for an upper endoscopy early next week. Boone Morris MD
--- NOTE | 2017-10-04 12:51 | MRI ---
Date of service: 10/04/2017 PROCEDURE: MRI BRAIN WITHOUT CONTRAST HISTORY: AMS, r/o CVA COMPARISON: Comparison made with CT scan brain 10/02/2017 and MRI brain dated 12/22/2013. . TECHNIQUE: Multiplanar, multisequence MR images of the brain were obtained without intravenous contrast enhancement. FINDINGS: Note that this examination is limited by motion artifact HEMORRHAGE: No acute parenchymal, subarachnoid or extra-axial hemorrhage. . DWI: No evidence of an acute or early subacute infarction seen on diffusion imaging. . . BRAIN PARENCHYMA: Diffuse significant diffuse/confluent chronic periventricular white matter ischemic changes again seen extending peripherally into the deep and subcortical white matter both cerebral hemispheres. Multiple more discrete chronic appearing infarcts scattered about the deep and subcortical white matter as well as both basal nuclei and brainstem. Large elliptical shaped calcific density within the mid and left parasagittal pineda again seen. This probably represents sequela of old hemorrhage with dystrophic type calcification. . Additionally, there also appears to be wallerian degeneration - atrophic changes left aspect of the pineda as well. Probable tiny lacunar type infarct left cerebellum Also again demonstrated is an elliptical shaped done dural-based mass in the right frontal operculum region that has increased in size measuring nearly 2.7 x 1.2 cm whereas on prior study this lesion measured approximately 2.47 x 8.8 cm. This probably represents some meningioma. The lesion exerts slight increased mass-effect on the right frontal operculum. Moderate to fairly significant generalized volume loss VENTRICLES: No obstructive hydrocephalus. CRANIUM: There are no acute calvarial abnormalities. ORBITS: Orbits and contents unremarkable. PARANASAL SINUSES/MASTOIDS: Clear VASCULAR SYSTEM: Visualized major vascular flow voids at skull base patent. OTHER FINDINGS: None. IMPRESSION: Limited motion degraded study. No acute intracranial hemorrhage. Probable old hemosiderin deposit with secondary dystrophic type calcification left pineda as above. Extensive chronic white matter basal nuclei and brainstem ischemic changes. Probable small lacunar type infarct left cerebellum Significant generalized volume loss. Interval increase extra-axial/ dural-based mass right frontal region probably representing a meningioma. The lesion exhibits slight increased mass-effect as well on the right frontal operculum.
--- NOTE | 2017-10-04 21:15 | PN ---
Copied To: Alley Garces MD Attending MD: Alely Garces MD DATE: 10/04/2017 FOLLOWUP NOTE SUBJECTIVE: He is comfortable in bed in no acute distress. He is alert, but not oriented. Not communicative, does not understand verbal commands. No seizure activity. MRI of the brain done today showed increase in right frontal lobe mass to 8 cm. Previously it was between 2 to 3 cm. No melena. Hemoglobin and hematocrit has been stable today. REVIEW OF SYSTEMS: As per HPI. Rest of 12-point review of systems reviewed negative. PHYSICAL EXAMINATION: GENERAL: Comfortable in bed in no acute distress. VITAL SIGNS: Temperature 97.8, heart rate is 79 per minute, respiratory rate 15 per minute, oxygen saturation 98% room air. HEENT: Pallor positive. NECK: No lymphadenopathy. CHECK: Air entry present and equal bilateral. No added sound. CARDIOVASCULAR: S1 and S2 normal. No murmur. No gallop. ABDOMEN: Soft, nontender. No hepatosplenomegaly. EXTREMITIES: No edema. [employer] AUDITOR: No focal sensory or motor deficit. LABORATORY DATA: White count 4.9, hemoglobin 8.7, hematocrit 26.2, platelet 216. Sodium 137, potassium 3.8, creatinine 5.4. MEDICATIONS: Reviewed. ASSESSMENT/PLAN: 1. Increase in right frontal lobe mass. 2. Altered mental status. 3. Anemia. 4. End-stage renal disease on hemodialysis. PLAN: Neurology consultation, Dr. Holland appreciated. He has increasing right frontal lobe mass which is 8 cm, now likely meningioma. He will need neurosurgical consultation. We will discuss with the primary team. End-stage renal disease on hemodialysis. BUN and creatinine improved. He underwent dialysis on Thursday. No melena. Hemoglobin/hematocrit stable. Evaluated by GI Dr. Morris. Alley Garces MD
[2017-10-05 07:03] LABS: HEMOGLOBIN 8.6 g/dL (14.0-18.0); MEAN CELL VOLUME 91.3 fl (80.0-105.0); MEAN CORPUSCULAR HEMOGLOBIN 30.1 pg (25.0-35.0); MEAN PLATELET VOLUME 8.8 fl (7.0-11.0); RBC 2.86 10^6/uL (3.5-6.1); RED CELL DISTRIBUTION WIDTH 15.9 % (11.5-14.5); WHITE BLOOD COUNT 5.5 10^3/ul (4.5-11.0)
--- NOTE | 2017-10-05 09:03 | PN ---
Copied To: Nii Skaggs MD Attending MD: Nii Skaggs MD DATE: 10/05/2017 SUBJECTIVE: The patient has no complaints of any chest pain. No shortness of breath. No headaches or dizziness. PHYSICAL EXAMINATION: VITAL SIGNS: Temperature is 98.6, pulse of 86, blood pressure is 147/71, respirations 18. GENERAL: The patient is lying in bed, flat, comfortable. HEENT: No oral lesion. Anicteric sclerae. Moist mucosa. NECK: No JVD, adenopathy, or thyromegaly. CARDIOVASCULAR: S1 and S2, regular. No murmurs, rubs, or gallops. LUNGS: Clear to auscultation bilaterally. No wheeze, rales, or rhonchi. ABDOMEN: Bowel sounds are positive, soft, nontender and nondistended. EXTREMITIES: No cyanosis, clubbing or edema. ASSESSMENT: 1. Acute anemia secondary to blood loss. 2. End-stage renal disease, on hemodialysis. 3. Hypokalemia, improved. 4. Noncompliance to his dialysis. 5. Meningioma - mildly larger. 6. Lacunar infarcts of cerebellum by MRI. 7. Secondary hyperparathyroidism. PLAN: The patient is currently on Meclizine for his dizziness. He is on Flomax. He is on Lipitor for dyslipidemia. He is going to be on Renagel for his secondary hyperparathyroidism. He is also on Sensipar. The patient is on a liquid diet. He is being followed by GI. The patient may need endoscopy. iNi Skaggs MD
[2017-10-05] MEDS: NIACIN 500 MG PO SCH (09:42)
[2017-10-05] MEDS ORDERED: Darbepoetin Alfa 60 mcg/ml Inj IVP ONE (11:28)
[2017-10-05] MEDS ORDERED: Doxercalciferol 4 mcg/2 ml Inj IVP ONE (11:38)
--- NOTE | 2017-10-05 12:40 | PN ---
Copied To: Tanya Green MD Attending MD: Tanya Green MD DATE: 10/05/2017 SUBJECTIVE: The patient is seen lying in bed. He is awake. He is alert. He is comfortable. He is eating breakfast. He wants to go home. PHYSICAL EXAMINATION: GENERAL: Elderly male, lying in bed. VITAL SIGNS: Blood pressure 147/71, heart rate 86, respiratory rate 18, temperature 98.6. HEENT: Normocephalic, atraumatic, positive pallor. NECK: Supple, no JVD. LUNGS: Bilateral equal air entry, bilateral equal expansion, no rales. CARDIAC: S1 and S2, regular rate and rhythm, no murmur, no rub. ABDOMEN: Soft, nondistended, nontender, bowel sounds present. EXTREMITIES: No lower extremity edema. LABORATORY DATA: WBC 5.5, hemoglobin 8.6, hematocrit 26, platelets 227. Sodium 137, potassium 3.8, chloride 97, CO2 of 28, BUN 50, creatinine 5.4, glucose 216, calcium 9.6. CURRENT MEDICATIONS: Antivert, Flomax, Lamictal, Lipitor, niacin, Protonix, sevelamer, Cinacalcet, lisinopril. ASSESSMENT: 1. Acute on chronic anemia, the patient presented with a hemoglobin of 6.7, got 2 units of blood on 10/02/2017. Hemoglobin has remained stable for the last 72 hours. 2. History of cerebrovascular accident. 3. History of coronary artery disease. 4. End-stage renal disease. 5. Hypertension. 6. Secondary hyperparathyroidism. PLAN: 1. Dialysis today. 2. Endoscopy as per GI. 3. Monitor H and H. 4. Continue current antihypertensives. 5. Continue Renagel. 6. Continue Sensipar. Tanya Green MD
--- NOTE | 2017-10-05 12:59 | CP.PCM.PN ---
Subjective - Date & Time of Evaluation Date of Evaluation: 10/05/17 Time of Evaluation: 09:25 - Subjective Subjective: S&E at bedside this am, no acute overnight events reported from nursing staff or patient. He does c/o some diffuse abdominal discomfort but no distress, he ate breakfast this am, no N/V, SOB or CP. No reports of overt GI bleeding. He is for dialysis today. Objective - Vital Signs/Intake and Output Vital Signs (last 24 hours): Temp Pulse Resp BP Pulse Ox 98.6 F 86 18 147/71 96 10/05/17 06:00 10/05/17 06:00 10/05/17 06:00 10/05/17 06:00 10/05/17 06:00 Intake and Output: 10/05/17 10/05/17 06:59 18:59 Intake Total 480 Output Total 3 Balance 477 - Medications Medications: Current Medications Atorvastatin Calcium (Lipitor) 10 mg PO DIN [facility] Last Admin: 10/04/17 17:41 Dose: 10 mg Cinacalcet (Sensipar) 30 mg PO DAILY [facility] Last Admin: 10/05/17 09:36 Dose: 30 mg Lamotrigine (Lamictal) 50 mg PO DAILY [facility] Last Admin: 10/05/17 09:35 Dose: 50 mg Lisinopril (Zestril) 40 mg PO DAILY [facility] Last Admin: 10/05/17 09:36 Dose: 40 mg Meclizine HCl (Antivert) 25 mg PO DAILY PRN PRN Reason: Dizziness Niacin [Niacin Er] (500 Mg) (Home Med)) 500 mg PO DAILY [facility] Last Admin: 10/05/17 09:42 Dose: Not Given Pantoprazole Sodium (Protonix Inj) 40 mg IVP Q12 [facility] Last Admin: 10/05/17 09:35 Dose: 40 mg Sevelamer HCl (Renagel) 800 mg PO TID [facility] Last Admin: 10/05/17 09:35 Dose: 800 mg Tamsulosin HCl (Flomax) 0.4 mg PO DAILY [facility] Last Admin: 10/05/17 09:35 Dose: 0.4 mg - Labs Labs: 10/05/17 06:00 10/04/17 10:00 PT 10.7 SECONDS (9.4-12.5) 10/02/17 14:42 INR 0.94 10/02/17 14:42 APTT 26.4 Seconds (25.1-36.5) 10/02/17 14:42 - Constitutional Appears: No Acute Distress - Head Exam Head Exam: NORMOCEPHALIC - Eye Exam Eye Exam: Normal appearance. absent: Scleral icterus - ENT Exam ENT Exam: Mucous Membranes Moist - Neck Exam Neck Exam: Normal Inspection - Respiratory Exam Respiratory Exam: NORMAL BREATHING PATTERN. absent: Respiratory Distress - Cardiovascular Exam Cardiovascular Exam: +S1, +S2 - GI/Abdominal Exam GI & Abdominal Exam: Soft, Tenderness, Normal Bowel Sounds. absent: Organomegaly, Rebound Additional comments: diffuse, no rebound or guarding. - Extremities Exam Extremities Exam: absent: Calf Tenderness, Pedal Edema - Neurological Exam Neurological Exam: Alert, Awake, Oriented x3 (aware or surroundings but get confused at times) - Skin Skin Exam: Dry, Warm Assessment and Plan - Assessment and Plan (Free Text) Assessment: Assessment: Melena, r/o upper GI source, DDX: PUD, AVM, diverticular, malignancy Normocytic Anemia 2/2 melena, vs chronic anemia 2/2 ESRD hx of CVA fluid overload ESRD Plan: -keep hgb >8 -transfuse as needed -on puree diet -on Protonix IV BID -plan for EGD tentatively 10/06/17, will speak to family for consent -NPO 12 midnight except medication Discussed w/ Dr. Morris covering for Dr. Barrios.
--- NOTE | 2017-10-05 14:38 | CP.PCM.PN ---
Subjective - Date & Time of Evaluation Date of Evaluation: 10/05/17 Time of Evaluation: 14:32 - Subjective Subjective: pt was admitted with mental status changes which apparently were metabolic in nature. he has multiple other acute conditions An MRI demonstrated a right temporal meningioma which was known [employer]. The tumor slightly increased in size since prior MRI but apparently remains on the small side and does not appear to be symptomatic at this time Pt has old CVA with dysarthria, and right hemiparisis He at this time has returned to his baseline and his exam shows that his pupils are equil reactive, eom full able to anwer questions but understanding his speech is difficult the right arm and leg are 5/5 with no deficits Hw was obviously aware of this tumor, and at this time his other medical conditions need to be addressed prior to making any decision regarding excision I suggest you give him instructions to follow up with me after discharge, when he and his significant family can discuss this matter Objective - Vital Signs/Intake and Output Vital Signs (last 24 hours): Temp Pulse Resp BP Pulse Ox 98.2 F 79 18 123/50 L 94 L 10/05/17 14:22 10/05/17 14:22 10/05/17 14:22 10/05/17 14:22 10/05/17 14:22 Intake and Output: 10/05/17 10/05/17 06:59 18:59 Intake Total 480 Output Total 3 Balance 477 - Medications Medications: Current Medications Atorvastatin Calcium (Lipitor) 10 mg PO DIN [facility] Last Admin: 10/04/17 17:41 Dose: 10 mg Cinacalcet (Sensipar) 30 mg PO DAILY [facility] Last Admin: 10/05/17 09:36 Dose: 30 mg Lamotrigine (Lamictal) 50 mg PO DAILY [facility] Last Admin: 10/05/17 09:35 Dose: 50 mg Lisinopril (Zestril) 40 mg PO DAILY [facility] Last Admin: 10/05/17 09:36 Dose: 40 mg Meclizine HCl (Antivert) 25 mg PO DAILY PRN PRN Reason: Dizziness Niacin [Niacin Er] (500 Mg) (Home Med)) 500 mg PO DAILY [facility] Last Admin: 10/05/17 09:42 Dose: Not Given Pantoprazole Sodium (Protonix Inj) 40 mg IVP Q12 [facility] Last Admin: 10/05/17 09:35 Dose: 40 mg Sevelamer HCl (Renagel) 800 mg PO TID [facility] Last Admin: 10/05/17 13:50 Dose: Not Given Tamsulosin HCl (Flomax) 0.4 mg PO DAILY [facility] Last Admin: 10/05/17 09:35 Dose: 0.4 mg - Labs Labs: 10/05/17 06:00 10/04/17 10:00 PT 10.7 SECONDS (9.4-12.5) 10/02/17 14:42 INR 0.94 10/02/17 14:42 APTT 26.4 Seconds (25.1-36.5) 10/02/17 14:42
--- NOTE | 2017-10-05 16:14 | PN ---
Copied To: Tristen Holland MD Attending MD: Tristen Holland MD DATE: 10/05/2017 NEUROLOGY FOLLOWUP CHIEF COMPLAINT: Followup for questionable seizure. SUBJECTIVE: The patient was seen and examined at bedside. He is alert. He is comfortable. He is eating breakfast. He wants to go home. His MRI of the brain over the weekend showed all the left hemorrhagic stroke, also bilateral lacunar infarcts bilaterally right frontal meningioma. Neurosurgery consultation has been placed. Currently, no further seizure like activity. His hemoglobin is again stable. Possibly need endoscopy by GI. His hemoglobin today is 8.6. 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 REVIEW OF SYSTEMS: Fourteen-point review of systems is negative except as per the HPI. FAMILY HISTORY: Noncontributory. MEDICATIONS: Reviewed by nurse per reconciliation sheet. ALLERGIES: NO KNOWN DRUG ALLERGIES. SOCIAL HISTORY: No illicit drug use, smoking, or EtOH abuse at this time. LABORATORY DATA: Hemoglobin is 8.6, hematocrit is 26.1, platelet count is 227. Sodium is 137, potassium 3.8, chloride 97, carbon dioxide 28. BUN of 50, creatinine 5.4. Random glucose 216. PHYSICAL EXAMINATION: VITAL SIGNS: Temperature 98.6, pulse rate of 86, blood pressure 147/80, oxygen saturation 96% by room air. GENERAL: The patient is sitting up in bed, in no acute distress. HEENT: Atraumatic, normocephalic. PERRLA. Extraocular muscles intact. NECK: Supple. No JVD. No adenopathy noted. LUNGS: Clear to auscultation. No adventitious sounds. HEART: S1, S2. Normal rate and rhythm. No murmurs, rubs, or gallops. ABDOMEN: Soft, nontender, and nondistended. Bowel sounds are present. EXTREMITIES: No clubbing. No cyanosis. Peripheral pulses 2+ felt bilaterally. NEUROLOGIC: The patient is alert and oriented to person, place, month, and year. Hard of hearing bilaterally. He has a right arm AV fistula. Cranial nerves II through XII intact. Speech is hypophonic, but no aphasia noted. Motor exam: Has residual right-sided weakness, 5-/5 from old CVA on the left side. Tone is slightly increased throughout. Sensory exam: Light touch, pinprick, proprioception, decreased up to the calves bilaterally. Decreased vibration at the toes. DTRs are 2+ throughout and absent at the ankles and knees. Toes are downgoing bilaterally. Gait is deferred for now. ASSESSMENT AND PLAN: This is a 67-year-old man with past medical history of old left hemorrhagic infarct in the pineda, residual right-sided weakness, right-sided frontal meningioma; type 2 diabetes mellitus; diabetic peripheral neuropathy; chronic kidney disease stage IV, on hemodialysis; complex partial seizure on Lamictal, came in for episodes of staring spells and dark-colored stools, found to have acute anemia secondary to blood loss. Status post two units on 10/02/2017, which is hemoglobin is slightly up now from 6 to 7. He has been seen by Nephrology for his underlying chronic kidney disease. He has slight increase in his right frontal meningioma and Neurosurgery's consult has been placed. At this time, we recommend; 1. Continue his Lamictal 100 mg p.o. b.i.d. for seizure prophylaxis. 2. Follow up with Neurosurgery in regards to his right frontal meningioma, stable at this point. 3. To monitor his hemoglobin and hematocrit, and follow up with GI's recommendation post endoscopy. 4. Continue with current present medical management, PT/OT, and likely subacute rehab. Thank you for this followup. Tristen Holland MD
[2017-10-05 22:02] VITALS: RESP 20
[2017-10-06 07:04] LABS: HEMOGLOBIN 8.5 g/dL (14.0-18.0); MEAN CELL VOLUME 91.5 fl (80.0-105.0); MEAN CORPUSCULAR HEMOGLOBIN 29.9 pg (25.0-35.0); MEAN CORPUSCULAR HGB CONC 32.7 g/dl (31.0-37.0); MEAN PLATELET VOLUME 8.9 fl (7.0-11.0); RBC 2.84 10^6/uL (3.5-6.1); RED CELL DISTRIBUTION WIDTH 15.7 % (11.5-14.5); WHITE BLOOD COUNT 5.3 10^3/ul (4.5-11.0)
--- NOTE | 2017-10-06 08:33 | PN ---
Copied To: Boone Morris MD Attending MD: Boone Morris MD ADDENDUM DATE: 10/05/2017 This is an addendum to a progress note performed by Macrina Jenkins APN. The patient was seen personally by me. There are no further reports of melena. His hemoglobin appears to be stable in the 8.5 g range. The patient is scheduled for an upper endoscopy for the morning. Boone Morris MD
[2017-10-06] MEDS: NIACIN 500 MG PO SCH (10:35)
[2017-10-06] MEDS ORDERED: Etomidate 20 mg/10ml Inj IV ONE (12:11)
[2017-10-06] MEDS ORDERED: Propofol 10 mg/ml Inj (20 ML) ONE (12:11)
[2017-10-06] MEDS ORDERED: Sodium Chloride 0.9% 1,000 ML IV SCH (12:30)
[2017-10-06 14:24] VITALS: BP 113/67; PULSE 68; TEMP 98.1; O2SAT 97
[2017-10-06] MEDS ORDERED: Pantoprazole 40 mg EC Tab PO SCH (16:00)
--- NOTE | 2017-10-06 23:27 | DS ---
Copied To: Nii Skaggs MD Attending MD: Nii Skaggs MD HISTORY OF PRESENT ILLNESS: This is a 67-year-old male who was coming in to the hospital with complaints of anemia. The patient had a hemoglobin of 6.7. He was given the blood transfusion. The patient had undergone an endoscopy. The patient's endoscopy showed that he had peptic ulcer disease. He was placed on Protonix while he was admitted to the hospital. The patient was followed by GI. He was getting dialysis as well. He is going to be treated with Protonix b.i.d. for at least 4 weeks and will most likely need a repeat endoscopy done. He has no complaints of any headaches or dizziness. No nausea. No vomiting. PHYSICAL EXAMINATION: VITAL SIGNS: Temperature is 98, pulse of 72, blood pressure is 156/69, respirations 14. GENERAL: The patient is lying in bed, flat, comfortable. HEENT: No oral lesion. Anicteric sclerae. Moist mucosa. NECK: No JVD, adenopathy, or thyromegaly. CARDIOVASCULAR: S1 and S2, regular. No murmurs, rubs, or gallops. LUNGS: Clear to auscultation bilaterally. No wheeze, rales, or rhonchi. ABDOMEN: Bowel sounds are positive, soft, nontender and nondistended. EXTREMITIES: No cyanosis, clubbing or edema. ASSESSMENT: 1. Acute anemia secondary to blood loss. 2. Peptic ulcer disease. 3. Esophagitis. 4. Esophageal ulcers. 5. End-stage renal disease, on hemodialysis. 6. Meningioma. 7. 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 8. Secondary hyperparathyroidism. PLAN: The patient is currently comfortable. He was given Aranesp. He was also given Pneumovax prior to being discharged. He is going to continue dialysis as an outpatient. He is going to be on Protonix b.i.d. CONDITION: Stable. ACTIVITIES: Increase as tolerated. Nii Skaggs MD
--- NOTE | 2017-10-07 00:29 | PN ---
Copied To: Tanya Green MD Attending MD: Tanya Green MD DATE: 10/06/2017 SUBJECTIVE: The patient is seen lying in bed. He is awake. He is alert. He is comfortable. He denies any pain. He denies any shortness of breath. He is awaiting his endoscopy. PHYSICAL EXAMINATION: GENERAL: Elderly male, lying in bed. VITAL SIGNS: Blood pressure 151/61, heart rate 78, respiratory rate 14, temperature 98. HEENT: Normocephalic, atraumatic, positive pallor. NECK: Supple, no JVD. LUNGS: Bilateral equal air entry, bilateral equal expansion, no rales. CARDIAC: S1 and S2, regular rate and rhythm, no murmur, no rub. ABDOMEN: Obese, distended, soft, nontender, bowel sounds present. EXTREMITIES: No lower extremity edema. INTAKE AND OUTPUT: Not charted. LABORATORY DATA: No new labs. CURRENT MEDICATIONS: Meclizine, Flomax, lidocaine, Lipitor, Protonix, sevelamer, cinacalcet, normal saline. ASSESSMENT: 1. [id number]-mnoviti anemia. 2. Hypertension. 3. End-stage renal disease. 4. History of cerebrovascular accident. 5. Secondary hyperparathyroidism. PLAN: 1. Awaiting endoscopy. 2. Hemoglobin has been stable status post 2 units of blood transfusion on 10/02/2017. 3. Continue phosphate binder. 4. Continue Sensipar. Tanya Green MD
== END 2017-10-06 17:38 | disposition home or self-care (01) | DRG 377 ==
LOC: ED 14:04 → ERH 16:14 → 2RNO 17:44 → 5RNO 10-05 10:22
PROVIDERS: ADMIT Internal Medicine Nephrology; ATTEND Internal Medicine Nephrology
PROC: 5A1D70Z Performance of Urinary Filtration, Intermittent, Less than 6 Hours Per Day (ICD-10-PCS; 2017-10-02)
PROC: 30233N1 Transfusion of Nonautologous Red Blood Cells into Peripheral Vein, Percutaneous Approach (ICD-10-PCS; 2017-10-02)
PROC: 5A1D70Z Performance of Urinary Filtration, Intermittent, Less than 6 Hours Per Day (ICD-10-PCS; 2017-10-03)
PROC: 5A1D70Z Performance of Urinary Filtration, Intermittent, Less than 6 Hours Per Day (ICD-10-PCS; 2017-10-05)
PROC: 0DB68ZX Excision of Stomach, Via Natural or Artificial Opening Endoscopic, Diagnostic (ICD-10-PCS; 2017-10-06)
PROC: 0DB58ZX Excision of Esophagus, Via Natural or Artificial Opening Endoscopic, Diagnostic (ICD-10-PCS; principal; 2017-10-06 13:00)
DX: K92.1 Melena (principal); N18.6 End stage renal disease; D62 Acute posthemorrhagic anemia; N25.81 Secondary hyperparathyroidism of renal origin; I12.0 Hypertensive chronic kidney disease with stage 5 chronic kidney disease or end stage renal disease; G40.209 Localization-related (focal) (partial) symptomatic epilepsy and epileptic syndromes with complex partial seizures, not intractable, without status epilepticus; I69.351 Hemiplegia and hemiparesis following cerebral infarction affecting right dominant side; K22.10 Ulcer of esophagus without bleeding; K25.9 Gastric ulcer, unspecified as acute or chronic, without hemorrhage or perforation; K29.50 Unspecified chronic gastritis without bleeding; I25.10 Atherosclerotic heart disease of native coronary artery without angina pectoris; E87.6 Hypokalemia; E11.22 Type 2 diabetes mellitus with diabetic chronic kidney disease; E11.42 Type 2 diabetes mellitus with diabetic polyneuropathy; E87.70 Fluid overload, unspecified; E78.5 Hyperlipidemia, unspecified; F17.210 Nicotine dependence, cigarettes, uncomplicated; D32.0 Benign neoplasm of cerebral meninges; Z99.2 Dependence on renal dialysis; I69.322 Dysarthria following cerebral infarction; Z98.61 Coronary angioplasty status; Z91.19 Patient's noncompliance with other medical treatment and regimen

== ENCOUNTER 2017-11-18 20:08 | Observation (INO) | payer MEDICARE, OTHER ==
--- NOTE | 2017-11-18 21:39 | EDPD ---
HPI Stroke - General Time Seen by Provider: 11/18/17 20:35 Chief Complaint: Altered Mental Status Historian: Patient - History of Present Illness Narrative History of Present Illness (Free Text): 11/18/17 20:50 Matt Camacho is a 67 year old male, whose past medical history includes ESRD, CVA, hypertension, and hyperlipidemia, who presents to the emergency department brought in by EMS accompanied complaining of altered mental status. As per family, patient developed altered mental status and left-sided weakness after dialysis today. Limited HPI and ROS secondary to patient's altered mental status. Date:: 11/18/17 Time: 20:50 Onset:: Today Timing: Currently Symptomatic Context: Home Exacerbated by: Nothing Relieved by: Nothing - Location Location: Mental Status rTPA Inclusion/Exclusion - Refusal of Treatment Patient Refused Treatment: No - Inclusion Criteria for Altepase Patient is 18 years or Older: Yes The Clinical Diagnosis of Ischemic Stroke That is Causing a Potentially Disabling Neurological Deficit: No Time of Onset is Well Established to be Less Than 270 Minute Before Treatment Would Begin: Yes Risk/Benefit Discussed With Patient/Family Member Present: Yes - Exclusion Criteria for Altepase Uncontrolled Hypertension at Time of Treatment (Systolic BP above 185 or Diastolic BP above 110 mmHg): No Active Internal Bleeding: No Known Bleeding Diathesis Including but Not Limited to: Platelets Below 100,000/mm,PTT Above 40 sec After Heparin Use, Current Use of Oral Anitcoagulant With INR Greater Than 1.7 or PT Greater Than 15 secs: No Evidence of an Intracranial Hemorrhage: No Evidence of Major Acute Infarct With Signs Greater Than 1/3 MCA Territory: No Suspicion of Subarachnoid Hemorrhage on Pretreatment Evaluation Even if CT Head Negative For Hemorrhage: Yes - Warning to TPA With Conditions Following Conditions Weighed Against Anticipated Benefit: Yes Condition: Rapid Improvement Past Medical History - Provider Review Nursing Documentation Reviewed: Yes - Past History Past History: No Previous - Infectious Disease Hx of Infectious Diseases: None - Cardiac Hx Cardiac Disorders: Yes (angioplasty 1989) Hx Hypertension: Yes - Pulmonary Hx Respiratory Disorders: No - Neurological Hx Neurological Disorder: Yes (short term memory loss) HX Cerebrovascular Accident: Yes (around 1991 right side weakness) Hx Dizziness: Yes (syncope) Hx Transient Ischemic Attacks (TIA): Yes (several) Other/Comment: poor hand eye coordination, pt suffered heat stroke and when brought to the hospital was found to have had several small strokes in the past, pt was unaware, headaches, slurred speech, peripheral neuropathy, right side paralysis, numbness. - HEENT Hx HEENT Disorder: Yes (ringing in the ears) - Renal Hx Renal Disorder: Yes Hx Dialysis: Yes Type of Dialysis Access: M-[id number]-F Date of Last Dialysis Treatment: 11/18/17 - Endocrine/Metabolic Hx Endocrine Disorders: Yes Hx Diabetes Mellitus Type 1: Yes - Hematological/Oncological Hx Blood Disorders: Yes Hx Blood Transfusions: Yes Hx Blood Transfusion Reaction: No - Integumentary Other/Comment: bottom of feet and toes have dryed brown skin bilateral - Musculoskeletal/Rheumatological Hx Musculoskeletal Disorders: No Hx Falls: No - Gastrointestinal Hx Gastrointestinal Disorders: Yes - Genitourinary/Gynecological Hx Genitourinary Disorders: No - Psychiatric Hx Psychophysiologic Disorder: No Hx Depression: No Hx Emotional Abuse: No Hx Physical Abuse: No Hx Substance Use: No - Surgical History Hx Appendectomy: Yes Other/Comment: right arm dialysis fistula - Anesthesia Hx Anesthesia: Yes Hx Anesthesia Reactions: No (UNKNOWN) Hx Malignant Hyperthermia: (UNKNOWN) - Suicidal Assessment Feels Threatened In Home Enviroment: No Family/Social History - Family/Social History Family History: Non-Contributory - Review Nursing documentation reviewed.: Yes Allergies/Home Meds Allergies/Adverse Reactions: Allergies No Known Allergies Allergy (Verified 10/02/17 14:18) Home Medications: Home Meds Medication Instructions Recorded Confirmed RX: Enalapril Maleate 20 mg PO BID 10/22/11 10/02/17 RX: Meclizine HCl [Antivert] 25 mg PO PRN PRN 10/22/11 10/02/17 RX: Tamsulosin [Flomax] 0.4 mg PO DAILY 10/22/11 10/02/17 RX: Cinacalcet [Sensipar] 30 mg PO DAILY 10/02/17 10/02/17 RX: Fenofibrate Nanocrystallized 160 mg PO DAILY 10/02/17 10/02/17 [Triglide] RX: Lamotrigine [Lamictal (Blue)] 50 mg PO DAILY 10/02/17 10/02/17 RX: Niacin [Niacin ER] 500 mg PO DAILY 10/02/17 10/02/17 RX: Maple-3S/Dha/Epa/Fish Oil 1 each PO DAILY 10/02/17 10/02/17 [Fish Oil 1,200 mg Softgel] RX: Pravastatin Sodium [Pravachol] 40 mg PO DAILY 10/02/17 10/02/17 RX: Sevelamer Carbonate [Renvela] 800 mg PO TID 10/02/17 10/02/17 RX: Ubidecarenone [Coenzyme Q10] 400 mg PO DAILY 10/02/17 10/02/17 Review of Systems - Review of Systems Systems not reviewed;Unavailable: Altered Mental Status Neurological: Focal Weakness ED Stroke Physical Exam Vital Signs Reviewed: Yes Vital Signs Temp Pulse Resp BP Pulse Ox 11/18/17 20:15 97.9 F 64 18 145/68 96 Temperature: Afebrile Blood Pressure: Normal Pulse: Regular Respiratory Rate: Normal Appearance: Positive for: Well-Appearing, Non-Toxic, Comfortable Mental Status: Positive for: other (Awake, alert) Finger Stick Blood Glucose: 165 - Systems Exam Head: Present: Atraumatic, Normocephalic Pupils: Present: PERRL Extroacular Muscles: Present: EOMI Conjunctiva: Present: Normal Mouth: Present: Moist Mucous Membranes Neck: Present: Normal Range of Motion. No: Meningeal Signs, MIDLINE TENDERNESS, Paraspinal Tenderness Respiratory/Chest: Present: Clear to Auscultation, Good Air Exchange. No: Respiratory Distress, Accessory Muscle Use Cardiovascular: Present: Regular Rate and Rhythm, Normal S1, S2. No: Murmurs Abdomen: Present: Normal Bowel Sounds. No: Tenderness, Distention, Peritoneal Signs Upper Extremity: No: Cyanosis, Edema Lower Extremity: No: Edema Neurologic: No: Motor Func Grossly Intact (Left-sided weakness. Residual right- sided weakness from prior CVA.) Skin: Present: Warm, Dry, Normal Color. No: Rashes Psychiatric: Present: Alert Medical Decision Making ED Course and Treatment: 11/18/17 20:50 Impression: 67 year old male Plan: -- CT Head w/o contrast -- EKG -- Chest X-Ray -- Labs, troponin, lipid panel -- Reassess and disposition Prior Visits: Notes and results from previous visits were reviewed. Progress Notes: 11/18/17 20:50 Pt seen on arrival to emergency department . Code stroke called. Pt taken CT. 11/18/17 20:[address] Renae, neurologist, who is aware and agrees with plan. Pt is not a candidate for tPA at this time. Reviewed EKG, sinus rhythm at 86 bpm. Sinus arrhythmia. PVCs. No acute changes. 11/18/17 21:24 Radiology reviewed, Chest X-Ray shows no acute processes. CT Head Impression: 1. There is generalized parenchymal atrophy noted as demonstrated by symmetrical dilatation of ventricles and sulci. 2. Chronic severe periventricular and subcortical microvascular disease is seen. 3. Dense calcifications in the left pineda may represent old hemorrhage. 4. 3cm hypodense area in the left parietal lobe consistent with old stroke. 5. No definite evidence of acute stroke. 11/18/17 21:39 Repeat EKG reviewed, sinus rhythm at 94 bpm. PVCs. No acute changes. 11/18/17 22:[address] Skaggs, who is aware and agrees with plan. Accepts pt in to his service. - Lab Interpretations Lab Results: Lab Results 11/18/17 20:29: POC Glucose (mg/dL) 165 H I have reviewed the lab results: Yes - RAD Interpretation Radiology Orders: 11/18/17 20:51 HEAD W/O (CODE STROKE) [CT] Stat CHEST ONE VIEW [RAD] Stat Luggage Maker: ED Physician, Radiologist - EKG Interpretation Interpreted by ED Physician: Yes Type: 12 lead EKG - Scribe Statement The provider has reviewed the documentation as recorded by the Reny Acevedo Provider Scribe Attestation: All medical record entries made by the Scribe were at my direction and personally dictated by me. I have reviewed the chart and agree that the record accurately reflects my personal performance of the history, physical exam, medical decision making, and the department course for this patient. I have also personally directed, reviewed, and agree with the discharge instructions and disposition. NIHSS Scale ([place]) Time Performed: 20:50 - How Severe is the Stoke Baseline Level of Consciousness: 0=Alert LOC to Questions: 2=Neither correct LOC to commands: 1=Obeys one correctly Best Gaze: 0=Normal Visual: 0=No visual loss Facial: 0=Normal Motor Arm - Left: 1=Drift noted before 10 sec Motor Arm - Right: 3=No effort against gravity (falls immediately) Motor Leg - Left: 2=Falls before 5 sec Motor Leg - Right: 3=No effort against gravity (falls immediately) Limb Ataxia: 1=Present Upper or Lower Sensory: 1=Mild to moderate loss Best Language: 0=No aphasia Dysarthia: 1=Mild to moderate slurring Extinction & Inattention (Neglect): 0=Normal, no object Score: 15 Risk Level: Mod Stroke Risk Disposition/Present on Arrival - Present on Arrival Any Indicators Present on Arrival: No History of DVT/PE: No History of Uncontrolled Diabetes: No Urinary Catheter: No History of Decub. Ulcer: No History Surgical Site Infection Following: None - Disposition Have Diagnosis and Disposition been Completed?: Yes Diagnosis: Transient ischemic attack Disposition: HOSPITALIZED Disposition Time: 23:00 Condition: FAIR
[2017-11-18 21:42] LABS: BASO # 0.01 K/mm3 (0.0-2.0); BASO % 0.1 % (0.0-3.0); EOS % 0.6 % (1.5-5.0); GRAN # 5.57 (1.4-6.5); GRAN % 77.3 % (50.0-68.0); HEMOGLOBIN 13.1 g/dL (14.0-18.0); LYMPH # 1.2 (1.2-3.4); LYMPH % 16.7 % (22.0-35.0); MEAN CELL VOLUME 95.3 fl (80.0-105.0); MEAN CORPUSCULAR HEMOGLOBIN 30.5 pg (25.0-35.0); MEAN PLATELET VOLUME 9.4 fl (7.0-11.0); MONO # 0.4 (0.1-0.6); MONO % 5.3 % (1.0-6.0); RBC 4.3 10^6/uL (3.5-6.1); RED CELL DISTRIBUTION WIDTH 15.1 % (11.5-14.5); WHITE BLOOD COUNT 7.2 10^3/ul (4.5-11.0)
[2017-11-18 21:46] LABS: INR 0.97; PARTIAL THROMBOPLASTIN TIME 31.2 Seconds (25.1-36.5); PROTHROMBIN TIME 11.1 SECONDS (9.4-12.5)
[2017-11-18 21:50] LABS: ALB/GLOB RATIO 1.3 (1.1-1.8); ALBUMIN 4.3 g/dL (3.0-4.8)
[2017-11-18 22:04] LABS: TROPONIN I 0.01 ng/mL
[2017-11-19 04:31] VITALS: BMI 26.6
[2017-11-19 06:01] VITALS: O2SAT 98
--- NOTE | 2017-11-19 08:32 | CT ---
Date of service: 11/18/2017 PROCEDURE: CT HEAD WITHOUT CONTRAST. HISTORY: Code Stroke COMPARISON: Noncontrast head CT 10/02/2017. TECHNIQUE: Axial computed tomography images were obtained through the head/brain without intravenous contrast. Radiation dose: Total exam DLP = 952.66 mGy-cm. This CT exam was performed using one or more of the following dose reduction techniques: Automated exposure control, adjustment of the mA and/or kV according to patient size, and/or use of iterative reconstruction technique. FINDINGS: HEMORRHAGE: No intracranial hemorrhage. BRAIN: Advanced chronic microangiopathy is reiterated though other cause of myelomalacia are appreciated as this appears advanced for the patient's stated age of 59 years. If the patient is a vasculopath such is a diabetic, this may reflect age-appropriate neuro degenerative change. No cortical edema is appreciated and there is no mass effect. Right thalamic chronic lacune as well as bilateral cerebellar chronic lacunes are reiterated. VENTRICLES: Unremarkable. No hydrocephalus. CALVARIUM: Unremarkable. PARANASAL SINUSES: Unremarkable as visualized. No significant inflammatory changes. MASTOID AIR CELLS: Unremarkable as visualized. No inflammatory changes. OTHER FINDINGS: None. IMPRESSION: Stable unenhanced head CT reiterated ink advanced age related neuro degenerative findings most likely, and a few chronic lacunes as per above. No definite acute interval findings by standard CT criteria. Follow-up CT or MRI are available if clinically warranted.
--- NOTE | 2017-11-19 09:40 | RAD ---
Date of service: 11/18/2017 PROCEDURE: CHEST RADIOGRAPH, 1 VIEW HISTORY: Code Stroke COMPARISON: Portable chest 10/02/2017. FINDINGS: LUNGS: Limited left basilar fibrosis unchanged. No acute alveolitis bilaterally. PLEURA: No pneumothorax or pleural fluid seen. CARDIOVASCULAR: Normal. OSSEOUS STRUCTURES: No significant abnormalities. VISUALIZED UPPER ABDOMEN: Normal. OTHER FINDINGS: None. IMPRESSION: Stable left basilar fibrosis with remaining lung faulkner clear once again. No pulmonary vascular congestion.
[2017-11-19] MEDS ORDERED: FENOFIBRATE NANOCRYSTALLIZED 160 MG PO SCH (10:00)
--- NOTE | 2017-11-19 10:06 | CP.PCM.HP ---
Addendum entered and electronically signed by Kristy Andino DO 11/19/17 13:17: Patient passed swallow eval. Will get MRI brain. 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 Patient was confused as per family from normal baseline. This has never happened before. He was evaluated by Neurology in ED and he was not a candidate for tPA. Head CT was done which did not show any evidence of acute stroke at the time. This am, patient is A&O x 3 with garbled speech. He reports that he did not have any chest pain, shortness of breath, vision changes, diarrhea, numbness/tingling, fever or chills at the time of the incident or this AM. He said at that time he felt sweaty and vomited once and did not vomit since then. EKG showed NSR @83. 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 Lives with and 2 sons who take care of him Family history: Dad- heart problems Present on Admission - Present on Admission Any Indicators Present on Admission: No Review of Systems - Review of Systems All systems: reviewed and no additional remarkable complaints except Review of Systems: 12 point ROS reviewed as per HPI and is otherwise negative. Past Patient History - Infectious Disease Hx of Infectious Diseases: None - Past Social History Smoking Status: Light Smoker < 10 Cigarettes Daily - CARDIAC Hx Cardiac Disorders: Yes (angioplasty 1989) Hx Hypertension: Yes - PULMONARY Hx Respiratory Disorders: No - NEUROLOGICAL Hx Neurological Disorder: Yes (short term memory loss) HX Cerebrovascular Accident: Yes (around 1991 right side weakness) Hx Dizziness: Yes (syncope) Hx Transient Ischemic Attacks (TIA): Yes (several) Other/Comment: poor hand eye coordination, pt suffered heat stroke and when brought to the hospital was found to have had several small strokes in the past, pt was unaware, headaches, slurred speech, peripheral neuropathy, right side paralysis, numbness. - HEENT Hx HEENT Problems: Yes (ringing in the ears) - RENAL Hx Chronic Kidney Disease: Yes Hx Dialysis: Yes Type of Dialysis Access: M-W-F Date of Last Dialysis Treatment: 11/18/17 - ENDOCRINE/METABOLIC Hx Endocrine Disorders: Yes Hx Diabetes Mellitus Type 1: Yes - HEMATOLOGICAL/ONCOLOGICAL Hx Blood Disorders: Yes Hx Blood Transfusions: Yes Hx Blood Transfusion Reaction: No - INTEGUMENTARY Other/Comment: bottom of feet and toes have dryed brown skin bilateral - MUSCULOSKELETAL/RHEUMATOLOGICAL Hx Musculoskeletal Disorders: No Hx Falls: No - GASTROINTESTINAL Hx Gastrointestinal Disorders: Yes - GENITOURINARY/GYNECOLOGICAL Hx Genitourinary Disorders: No - PSYCHIATRIC Hx Psychophysiologic Disorder: No Hx Depression: No Hx Emotional Abuse: No Hx Physical Abuse: No Hx Substance Use: No - SURGICAL HISTORY Hx Appendectomy: Yes Other/Comment: right arm dialysis fistula - ANESTHESIA Hx Anesthesia: Yes Hx Anesthesia Reactions: No (UNKNOWN) Hx Malignant Hyperthermia: (UNKNOWN) Meds Allergies/Adverse Reactions: Allergies Allergy/AdvReac Type Severity Reaction Status Date / Time No Known Allergies Allergy Verified 10/02/17 14:18 Physical Exam - Constitutional Appears: No Acute Distress - Head Exam Head Exam: ATRAUMATIC, NORMAL INSPECTION, NORMOCEPHALIC - Eye Exam Eye Exam: Normal appearance, PERRL Pupil Exam: NORMAL ACCOMODATION, PERRL - ENT Exam ENT Exam: Mucous Membranes Moist Additional comments: R sided facial droop, garbled speech - Neck Exam Neck exam: Positive for: Normal Inspection - Respiratory Exam Respiratory Exam: Clear to Auscultation Bilateral, NORMAL BREATHING PATTERN. a bsent: Rales, Rhonchi, Wheezes - Cardiovascular Exam Cardiovascular Exam: REGULAR RHYTHM, +S1, +S2. absent: Gallop, Rubs, Systolic Murmur - GI/Abdominal Exam GI & Abdominal Exam: Normal Bowel Sounds, Soft. absent: Rebound, Rigid, Tenderness - Extremities Exam Extremities exam: Positive for: normal inspection. Negative for: calf tenderness, pedal edema - Neurological Exam Neurological exam: Alert, CN II-XII Intact, Oriented x3 Additional comments: R sided facial droop, garbled speech Weak on R side (3/5 strength RUE, 0/5 RLE). 5/5 strength on LUE and LLE - Psychiatric Exam Psychiatric exam: Normal Affect, Normal Mood - Skin Skin Exam: Dry, Warm Results - Vital Signs Recent Vital Signs: Last Vital Signs Temp 97.8 F 11/19/17 05:51 Pulse 77 11/19/17 05:57 Resp 20 11/19/17 05:51 BP 119/48 L 11/19/17 05:51 Pulse Ox 98 11/19/17 05:51 - Labs Result Diagrams: 11/18/17 21:32 11/18/17 21:32 Labs: Laboratory Results - last 24 hr 11/18/17 11/18/17 11/18/17 20:29 21:32 21:32 WBC 7.2 D RBC 4.30 Hgb 13.1 L D Hct 41.0 L MCV 95.3 D MCH 30.5 MCHC 32.0 RDW 15.1 H Plt Count 231 MPV 9.4 Gran % 77.3 H Lymph % (Auto) 16.7 L Nolan % (Auto) 5.3 Eos % (Auto) 0.6 L Baso % (Auto) 0.1 Gran # 5.57 Lymph # (Auto) 1.2 Nolan # (Auto) 0.4 Eos # (Auto) 0.0 Baso # (Auto) 0.01 PT 11.1 INR 0.97 APTT 31.2 Sodium Potassium Chloride Carbon Dioxide Anion Gap BUN Creatinine Est GFR ( Amer) Est GFR (Non-Af Amer) POC Glucose (mg/dL) 165 H Random Glucose Calcium Total Bilirubin AST ALT Alkaline Phosphatase Troponin I Total Protein Albumin Globulin Albumin/Globulin Ratio Triglycerides Cholesterol LDL Cholesterol Direct HDL Cholesterol Blood Type Antibody Screen BBK History Checked 11/18/17 11/18/17 21:32 21:32 WBC RBC Hgb Hct MCV MCH MCHC RDW Plt Count MPV Gran % Lymph % (Auto) Nolan % (Auto) Eos % (Auto) Baso % (Auto) Gran # Lymph # (Auto) Nolan # (Auto) Eos # (Auto) Baso # (Auto) PT INR APTT Sodium 136 Potassium 3.9 Chloride 93 L Carbon Dioxide 29 Anion Gap 18 BUN 32 H Creatinine 4.4 H Est GFR ( Amer) 16 Est GFR (Non-Af Amer) 13 POC Glucose (mg/dL) Random Glucose 158 H Calcium 10.0 Total Bilirubin 0.5 AST 23 ALT 11 Alkaline Phosphatase 73 Troponin I 0.01 D Total Protein 7.6 Albumin 4.3 Globulin 3.3 Albumin/Globulin Ratio 1.3 Triglycerides 197 H Cholesterol 140 LDL Cholesterol Direct 69 HDL Cholesterol 29 Blood Type A POSITIVE Antibody Screen Negative BBK History Checked Patient has bt Assessment & Plan - Assessment and Plan (Free Text) Assessment: This is a 67yo M with past medical history of ESRD on HD (MWF), HTN, HLD, 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 L sided weakness - r/o TIA 2. ESRD on HD (MWF) 3. HTN 4. HLD 5. L CVA w/ R residual weakness Plan: Neuro on consult. Patient is on ASA and Lipitor. Continue HD as scheduled MWF. Continue Renagel, Lisinopril and Sensipar. Patient will need swallow eval for dysphagia since he admits to having trouble swallowing at home. Upon d/c patient will be d/c home with possible services because he has a lot of support at home with his family. Case seen, discussed and reviewed with Dr. Skaggs. Lety Andino PGY3 - Date & Time Date: 11/19/17 Time: 10:13 <Nii Skaggs - Last Filed: 11/19/17 19:49> Results - Vital Signs Recent Vital Signs: Last Vital Signs Temp 97.9 F 11/19/17 18:00 Pulse 77 11/19/17 18:00 Resp 18 11/19/17 18:00 BP 120/62 11/19/17 18:00 Pulse Ox 98 11/19/17 05:51 - Labs Result Diagrams: 11/18/17 21:32 11/18/17 21:32 Labs: Laboratory Results - last 24 hr 11/18/17 11/18/17 11/18/17 20:29 21:32 21:32 WBC 7.2 D RBC 4.30 Hgb 13.1 L D Hct 41.0 L MCV 95.3 D MCH 30.5 MCHC 32.0 RDW 15.1 H Plt Count 231 MPV 9.4 Gran % 77.3 H Lymph % (Auto) 16.7 L Nolan % (Auto) 5.3 Eos % (Auto) 0.6 L Baso % (Auto) 0.1 Gran # 5.57 Lymph # (Auto) 1.2 Nolan # (Auto) 0.4 Eos # (Auto) 0.0 Baso # (Auto) 0.01 PT 11.1 INR 0.97 APTT 31.2 Sodium Potassium Chloride Carbon Dioxide Anion Gap BUN Creatinine Est GFR ( Amer) Est GFR (Non-Af Amer) POC Glucose (mg/dL) 165 H Random Glucose Hemoglobin A1c Calcium Total Bilirubin AST ALT Alkaline Phosphatase Troponin I Total Protein Albumin Globulin Albumin/Globulin Ratio Triglycerides Cholesterol LDL Cholesterol Direct HDL Cholesterol Blood Type Antibody Screen BBK History Checked 11/18/17 11/18/17 11/18/17 21:32 21:32 21:32 WBC RBC Hgb Hct MCV MCH MCHC RDW Plt Count MPV Gran % Lymph % (Auto) Nolan % (Auto) Eos % (Auto) Baso % (Auto) Gran # Lymph # (Auto) Nolan # (Auto) Eos # (Auto) Baso # (Auto) PT INR APTT Sodium 136 Potassium 3.9 Chloride 93 L Carbon Dioxide 29 Anion Gap 18 BUN 32 H Creatinine 4.4 H Est GFR ( Amer) 16 Est GFR (Non-Af Amer) 13 POC Glucose (mg/dL) Random Glucose 158 H Hemoglobin A1c 6.0 Calcium 10.0 Total Bilirubin 0.5 AST 23 ALT 11 Alkaline Phosphatase 73 Troponin I 0.01 D Total Protein 7.6 Albumin 4.3 Globulin 3.3 Albumin/Globulin Ratio 1.3 Triglycerides 197 H Cholesterol 140 LDL Cholesterol Direct 69 HDL Cholesterol 29 Blood Type A POSITIVE Antibody Screen Negative BBK History Checked Patient has bt 11/19/17 11/19/17 09:14 10:57 WBC RBC Hgb Hct MCV MCH MCHC RDW Plt Count MPV Gran % Lymph % (Auto) Nolan % (Auto) Eos % (Auto) Baso % (Auto) Gran # Lymph # (Auto) Nolan # (Auto) Eos # (Auto) Baso # (Auto) PT INR APTT Sodium Potassium Chloride Carbon Dioxide Anion Gap BUN Creatinine Est GFR ( Amer) Est GFR (Non-Af Amer) POC Glucose (mg/dL) 103 108 Random Glucose Hemoglobin A1c Calcium Total Bilirubin AST ALT Alkaline Phosphatase Troponin I Total Protein Albumin Globulin Albumin/Globulin Ratio Triglycerides Cholesterol LDL Cholesterol Direct HDL Cholesterol Blood Type Antibody Screen BBK History Checked Assessment & Plan - Assessment and Plan (Free Text) Assessment: Pt seen and examined. I have reviewed the note of the medical chemist and agree with it. I have discussed the assessment and plan with the resident. I have reviewed the patient's labs and medications. Pt with TIA. He passed the swallowing evaluation. He will be seen by neurology. Pt is on HD due to ESRD. Pt with dyslipidemia. Pt is back to baseline.
[2017-11-19 12:05] VITALS: TEMP 97.9
--- NOTE | 2017-11-19 13:09 | CARD ---
APPROVED REPORT Date of service: 11/18/2017 EKG Measurement Heart [id number] <Conclusion> Sinus rhythm with frequent premature ventricular complexes LAD
--- NOTE | 2017-11-19 13:10 | CARD ---
APPROVED REPORT Date of service: 11/18/2017 EKG Measurement Heart [id number] <Conclusion> Sinus rhythm with frequent premature ventricular complexes LAD
--- NOTE | 2017-11-19 17:04 | MRI ---
Date of service: 11/19/2017 PROCEDURE: MRI BRAIN WITHOUT CONTRAST HISTORY: AMS r/o CVA COMPARISON: Noncontrast head CT 11/18/2017. TECHNIQUE: Multiplanar, multisequence MR images of the brain were obtained without intravenous contrast enhancement. FINDINGS: HEMORRHAGE: No acute or subacute intracranial hemorrhage is appreciated. Signal dephasing is felt to be related to calcification related to a right frontal likely meningioma. There is no restricted diffusion to suggest an acute or subacute brain infarction. This area does exhibit some restricted diffusion but since it is extra-axial this is not related to an infarction. The lesion measures 1.1 x 2.7 cm and is stable in size in the interval. DWI: No evidence of an acute or early subacute infarction. BRAIN PARENCHYMA: Diffuse cerebral atrophy is reiterated. Extensive white matter signal abnormality is reiterated diffusely likely reflecting advanced chronic microangiopathy though other etiologies including potential amyloid angiopathy are possible. There is no interval mass effect though limited mass-effect remains exerted on the local basis alone by the right frontal meningioma. A dense calcification is reiterated at the left pineda with the posterior fossa contents unremarkable otherwise. No suspicious extra-axial fluid collection is appreciated. VENTRICLES: Unremarkable. No hydrocephalus. CRANIUM: Unremarkable. ORBITS: Grossly unremarkable. PARANASAL SINUSES/MASTOIDS: Clear VASCULAR SYSTEM: Skull base flow voids intact. OTHER FINDINGS: None. IMPRESSION: Stable examination including extensive likely chronic microangiopathy and [id number] diffuse cerebral atrophy. Dense calcification is reiterated at the left pineda as well as a small right frontal benign meningioma. No evidence of acute or subacute brain infarction.
[2017-11-19 18:21] VITALS: BP 120/62; PULSE 77; RESP 18
--- NOTE | 2017-11-19 18:35 | CON ---
DATE: 11/19/2017 NEUROLOGY CONSULTATION CHIEF COMPLAINT: Followup for TIA. 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 Currently, he is back to his baseline. He has chronic dysarthria. CAT scan of the head showed no acute intracranial abnormality. There are old scattered lacunar infarcts. He is undergoing an MRI of the brain. He is on Lamictal 100 mg p.o. b.i.d. for seizure prophylaxis. PAST MEDICAL HISTORY: As above. REVIEW OF SYSTEMS: A 14-point review of systems is negative except as per the HPI. SOCIAL HISTORY: No illicit drug use, smoking, or EtOH abuse. MEDICATIONS: Reviewed by nurse per reconciliation sheet. ALLERGIES: NO KNOWN DRUG ALLERGIES. LABORATORY DATA: Sodium is 136, potassium 3.9, chloride 93. BUN of 32, creatinine of 4.4. Blood glucose of 158, A1c is 6. PHYSICAL EXAMINATION VITAL SIGNS: Temperature 97.9, pulse rate of 80, blood pressure 127/58, respiratory rate 20, and oxygen saturation 98% by nasal cannula. GENERAL: The patient is lying in bed, in no acute distress. HEENT: Atraumatic and normocephalic. PERRLA. Extraocular muscles intact. NECK: Supple. No JVD. No adenopathy noted. LUNGS: Clear to auscultation. No adventitious sounds. HEART: S1 and S2. Normal rate and rhythm. No murmurs, rubs, or gallops. ABDOMEN: Soft, nontender, and nondistended. Bowel sounds present. EXTREMITIES: No clubbing, no cyanosis. Peripheral pulses 2+ felt bilaterally. NEUROLOGIC: The patient is alert and oriented to person, place, month, and year. Hard of hearing bilaterally. He has a right arm AV fistula. Cranial nerves II through XII intact. Speech is hypophonic, but no aphasia noted dysarthria. Motor exam: Has residual right-sided weakness, 5-/5 from old CVA on the left. Tone is slightly increased throughout. Sensory exam: Light touch, pinprick, proprioception decreased up to the calves bilaterally. Decreased vibration of the toes. DTRs are 2+ throughout and absent at the ankles and knees. Toes are downgoing bilaterally. Gait is deferred for now. ASSESSMENT AND PLAN: This is a 67-year-old man with history of old left hemorrhagic infarct in the pineda; residual right-sided weakness, right frontal meningioma, stable; type 2 diabetes mellitus; diabetic peripheral neuropathy; chronic kidney disease stage IV, on hemodialysis; complex partial seizure, on Lamictal; who came in for worsening slurred speech from his baseline and has questionable weakness on his left side. At this time, he is back to his baseline. He has residual right-sided weakness from prior cerebrovascular accident. At this time, we will recommend; 1. Continue aspirin 81 and Lipitor 40 for stroke prevention. 2. Monitor electrolytes and avoid hypotensive events status post dialysis, which can cause worsening stroke-like symptoms. 3. MRI of the brain. If MRI of the brain showed no acute intracranial abnormality, he can go home. Continue with Lamictal 100 mg p.o. b.i.d. for seizure prophylaxis. Thank you for this consultation. Tristen Holland MD
--- NOTE | 2017-11-19 20:32 | CON ---
DATE: 11/19/2017 REASON FOR CONSULTATION: Altered mental status, slurred speech, ESRD. HISTORY OF PRESENT ILLNESS: A 67-year-old male known to me from outpatient hemodialysis. The patient was brought to the Emergency Room late last night because of altered mental status. As per the ER note, the patient developed altered mental status and left-sided weakness after dialysis yesterday. Currently, the patient is awake, he is alert. He reports that after dialysis yesterday, he was feeling very weak. He was feeling extremely fatigued. He threw up in the parking lot and he broke out in a sweat. PAST MEDICAL AND SURGICAL HISTORY: Hypertension, hyperlipidemia, left CVA with residual right-sided weakness, slurred speech, ESRD, anemia of chronic kidney disease, and secondary hyperparathyroidism. FAMILY HISTORY: Noncontributory. SOCIAL HISTORY: No smoking, no alcohol use, no IV drug abuse. ALLERGIES: NO KNOWN DRUG ALLERGIES. MEDICATIONS: At home, include Flomax, Renagel, Pravachol, fenofibrate, enalapril, cinacalcet. REVIEW OF SYSTEMS: All systems are reviewed, pertinent positives as mentioned in the history of presenting illness, rest unremarkable. PHYSICAL EXAMINATION: GENERAL: Elderly male lying in bed. VITAL SIGNS: Blood pressure 127/58, heart rate 78, respiratory rate 20, temperature 98. HEENT: Normocephalic, atraumatic, positive pallor. NECK: Supple, no JVD. LUNGS: Bilateral equal air entry, bilateral equal expansion, no rales. CARDIAC: S1 and S2, regular rate and rhythm, no murmur, no rub. ABDOMEN: Soft, nondistended, nontender, bowel sounds present. EXTREMITIES: No lower extremity edema. LABORATORY DATA: WBC 7, hemoglobin 13, hematocrit 41, platelets 231. Sodium 136, potassium 3.9, chloride 93, CO2 of 29, BUN 32, creatinine 4.4, glucose 158, calcium 10. AST 23, ALT 11, LDL 69, albumin 4.3. ASSESSMENT: 1. Altered mental status,? transient ischemic attack, currently at baseline mental status. 2. History of cerebrovascular accident with right-sided hemiparesis. 3. Hypertension. 4. End-stage renal disease. 5. Anemia of chronic kidney disease. PLAN: 1. Agree with plan for MRI. 2. No indication for renal replacement therapy today, the patient had a complete treatment yesterday. Electrolytes are within normal limits. 3. Continue phosphate binders and Sensipar. 4.. Dialysis tomorrow if still in-house. Tanya Green MD
== END 2017-11-19 19:00 | disposition home or self-care (01) ==
LOC: ED 20:08 → ERH 23:49 → 2RNO 11-19 01:44
PROVIDERS: ADMIT Internal Medicine Nephrology; ATTEND Internal Medicine Nephrology
DX: R41.82 Altered mental status, unspecified (principal); I12.0 Hypertensive chronic kidney disease with stage 5 chronic kidney disease or end stage renal disease; N18.6 End stage renal disease; E11.22 Type 2 diabetes mellitus with diabetic chronic kidney disease; E11.42 Type 2 diabetes mellitus with diabetic polyneuropathy; E78.5 Hyperlipidemia, unspecified; D63.8 Anemia in other chronic diseases classified elsewhere; G81.91 Hemiplegia, unspecified affecting right dominant side; Z99.2 Dependence on renal dialysis; Z90.49 Acquired absence of other specified parts of digestive tract
CPT/HCPCS: 70450; 70551; 71045; 80053; 80061; 82948; 83036; 84484; 85025; 85610; 85730; 86850; 86900; 92610; 93005; 97161; 97530; 99285; G0378; G8978; G8979; G8996; G8997; G8998

== ENCOUNTER 2018-03-16 20:25 | Emergency (ER) | payer MEDICARE, OTHER ==
[2018-03-16 20:34] VITALS: BMI 27.1
[2018-03-16 20:37] VITALS: RESP 18
--- NOTE | 2018-03-16 21:16 | ED PDOC ---
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 As per family, patient has been complaining of epigastric pain radiating to upper chest, associated with cough, decreased appetite and reflux since Thursday night. Family reports worsening symptoms tonight, prompting him to present to the ED. Family denies any other somatic complaints. Denies any fever, chills, vomiting, changes in bowel movement, headache, dizziness or any o ther complaints. Patient had full session of dialysis yesterday without any complications. PMD: Dr. Ramirez Matrix Inspector: Dr. Green Neurologist: Dr. Holland Time/Duration: < week Symptom Onset: Gradual Symptom Course: Unchanged Activities at Onset: Light Context: Home Past Medical History - Provider Review Nursing Documentation Reviewed: Yes - Past History Past History: No Previous - Infectious Disease Hx of Infectious Diseases: None - Cardiac Hx Cardiac Disorders: Yes (angioplasty 1989) Hx Hypertension: Yes - Pulmonary Hx Respiratory Disorders: No - Neurological Hx Neurological Disorder: Yes (short term memory loss) HX Cerebrovascular Accident: Yes (around 1991 right side weakness) Hx Dizziness: Yes (syncope) Hx Transient Ischemic Attacks (TIA): Yes (several) Other/Comment: poor hand eye coordination, pt suffered heat stroke and when brought to the hospital was found to have had several small strokes in the past, pt was unaware, headaches, slurred speech, peripheral neuropathy, right side paralysis, numbness. - HEENT Hx HEENT Disorder: Yes (ringing in the ears) - Renal Hx Renal Disorder: Yes Hx Dialysis: Yes Date of Last Dialysis Treatment: 11/18/17 - Endocrine/Metabolic Hx Endocrine Disorders: Yes Hx Diabetes Mellitus Type 1: Yes - Hematological/Oncological Hx Blood Disorders: Yes Hx Blood Transfusions: Yes - Integumentary Hx Dermatological Disorder: Yes Other/Comment: bottom of feet and toes have dryed brown skin bilateral - Musculoskeletal/Rheumatological Hx Musculoskeletal Disorders: No Hx Falls: No - Gastrointestinal Hx Gastrointestinal Disorders: Yes - Genitourinary/Gynecological Hx Genitourinary Disorders: No - Psychiatric Hx Psychophysiologic Disorder: No Hx Depression: No Hx Emotional Abuse: No Hx Physical Abuse: No Hx Substance Use: No - Surgical History Hx Appendectomy: Yes Other/Comment: right arm dialysis fistula - Anesthesia Hx Anesthesia: Yes Hx Anesthesia Reactions: No (UNKNOWN) Hx Malignant Hyperthermia: (UNKNOWN) - Suicidal Assessment Feels Threatened In Home Enviroment: No Family/Social History - Physician Review Nursing Documentation Reviewed: Yes Family/Social History: Unknown Family HX Smoking Status: Light Smoker < 10 Cigarettes Daily Hx Alcohol Use: No Hx Substance Use: No Hx Substance Use Treatment: No Allergies/Home Meds Allergies/Adverse Reactions: Allergies No Known Allergies Allergy (Verified 03/16/18 20:41) Home Medications: Home Meds Medication Instructions Recorded Confirmed RX: Enalapril Maleate 20 mg PO BID 10/22/11 03/16/18 RX: Meclizine HCl [Antivert] 25 mg PO PRN PRN 10/22/11 03/16/18 RX: Tamsulosin [Flomax] 0.4 mg PO DAILY 10/22/11 03/16/18 RX: Cinacalcet [Sensipar] 60 mg PO DAILY 10/02/17 03/16/18 RX: Fenofibrate Nanocrystallized 150 mg PO DAILY 10/02/17 03/16/18 [Triglide] RX: Lamotrigine [Lamictal (Blue)] 50 mg PO DAILY 10/02/17 03/16/18 RX: Niacin [Niacin ER] 500 mg PO DAILY 10/02/17 03/16/18 RX: [place]-3S/Dha/Epa/Fish Oil 1 each PO DAILY 10/02/17 03/16/18 [Fish Oil 1,200 mg Softgel] RX: Pravastatin Sodium [Pravachol] 40 mg PO BID 10/02/17 03/16/18 RX: Sevelamer Carbonate [Renvela] 800 mg PO TID 10/02/17 03/16/18 RX: Ubidecarenone [Coenzyme Q10] 400 mg PO DAILY 10/02/17 03/16/18 Insulin Lispro Protamin/Lispro 25 units INJ DAILY 03/16/18 03/16/18 [Humalog Mix 75-25 Kwikpen] Sennosides/Docusate Sodium [Ra 1 tab PO DAILY 03/16/18 03/16/18 Senna Plus Tablet] Review of Systems - Physician Review All systems were reviewed & negative as marked: Yes - Review of Systems Respiratory: absent: SOB Gastrointestinal: Abdominal Pain, Appetite Changes Neurological: absent: Headache Physical Exam - Physical Exam Narrative Physical Exam (Text): 03/16/18 21:17 Constitutional: No acute distress. Head: Normocephalic. Atraumatic. Eyes: PERRL. ENT: Moist mucous membranes. Neck: Supple. Cardiovascular: Regular rate. Chest: No tenderness. Respiratory: Clear to auscultation bilaterally. GI: Epigastric tenderness with no rebound or guarding. Back: No CVA tenderness. Musculoskeletal: No tenderness or swelling of extremities. Fistula noted to right arm. Skin: Abrasions to anterior ward with dry scabs. Neurologic: Alert, no focal deficit. Vital Signs Reviewed: Yes Vital Signs Temp Pulse Resp BP Pulse Ox 03/16/18 20:34 97.5 F L 81 18 139/66 98 Temperature: Afebrile Blood Pressure: Normal Pulse: Regular Respiratory Rate: Normal Appearance: Positive for: Well-Appearing, Non-Toxic, Comfortable Pain Distress: None Finger Stick Blood Glucose: 183 Medical Decision Making ED Course and Treatment: 03/16/18 21:10 Impression: 68 year old male presents to the ED for evaluation of epigastric pain. Plan: -- Labs -- CT of Abdomen/Pelvis -- Chest X-ray -- Reassess and disposition Prior Visits: Notes and results from previous visits were reviewed. Progress Notes: 03/16/18 21:10 EKG: Ordered, reviewed, and independently interpreted the EKG. Rate : 77 BPM Rhythm : NSR Interpretation : No ST-segment elevations or depressions, no T-wave inversions, normal intervals. 03/16/18 21:25 CXR unchanged from previous. Has dialysis appointment tomorrow morning. CT no acute findings. Labs unremarkable/baseline and vitals stable. - EKG Interpretation Interpreted by ED Physician: Yes Type: 12 lead EKG - Scribe Statement The provider has reviewed the documentation as recorded by the Scribe Raciel He. All medical record entries made by the Scribe were at my direction and pers onally dictated by me. I have reviewed the chart and agree that the record accurately reflects my personal performance of the history, physical exam, medical decision making, and the department course for this patient. I have also personally directed, reviewed, and agree with the discharge instructions and disposition. Disposition/Present on Arrival - Present on Arrival Any Indicators Present on Arrival: No History of DVT/PE: No History of Uncontrolled Diabetes: No Urinary Catheter: No History of Decub. Ulcer: No History Surgical Site Infection Following: None - Disposition Have Diagnosis and Disposition been Completed?: Yes Diagnosis: Hiatal hernia Disposition: HOME/ ROUTINE Disposition Time: 00:01 Patient Plan: Discharge Condition: STABLE Discharge Instructions (ExitCare): Hiatal Hernia Forms: [employer] ([place])
[2018-03-16 21:45] LABS: BASO # 0.02 K/mm3 (0.0-2.0); BASO % 0.3 % (0.0-3.0); EOS # 0.1 (0.0-0.7); EOS % 0.7 % (1.5-5.0); GRAN # 5.58 (1.4-6.5); GRAN % 74.5 % (50.0-68.0); HEMOGLOBIN 13.3 g/dL (14.0-18.0); LYMPH # 1.5 (1.2-3.4); MEAN CORPUSCULAR HGB CONC 31.5 g/dl (31.0-37.0); MEAN PLATELET VOLUME 9.4 fl (7.0-11.0); MONO # 0.3 (0.1-0.6); MONO % 4.5 % (1.0-6.0); RBC 4.44 10^6/uL (3.5-6.1); RED CELL DISTRIBUTION WIDTH 14.9 % (11.5-14.5); WHITE BLOOD COUNT 7.5 10^3/uL (4.5-11.0)
[2018-03-16 21:51] LABS: INR 1.05; PARTIAL THROMBOPLASTIN TIME 35.6 Seconds (26.9-38.3); PROTHROMBIN TIME 11.6 SECONDS (9.4-12.5)
[2018-03-16 21:52] LABS: ALB/GLOB RATIO 1.2 (1.1-1.8); ALBUMIN 4.3 g/dL (3.0-4.8)
[2018-03-16 22:03] LABS: TROPONIN I 0.03 ng/mL
[2018-03-17 06:18] VITALS: BP 116/68; PULSE 76; TEMP 98; O2SAT 100
--- NOTE | 2018-03-17 08:25 | RAD ---
Date of service: 03/16/2018 HISTORY: EPIGASTRIC PAIN RADIATING TO CHEST COMPARISON: 11/18/2017 FINDINGS: Study slightly rotated towards the right. LUNGS: No active pulmonary disease. The left infrahilar bronchovascular markings are increasing conspicuity is could be technical. No definitive air bronchograms here seen.. Technique with or without subsegmental atelectasis with linear scar here are favored considerations. PLEURA: No significant pleural effusion identified, no pneumothorax apparent. CARDIOVASCULAR: No aortic atherosclerotic calcification present. Normal cardiac size. No pulmonary vascular congestion. OSSEOUS STRUCTURES: Thoracic spondylosis. Bilateral shoulder arthrosis. VISUALIZED UPPER ABDOMEN: Normal. OTHER FINDINGS: None. IMPRESSION: Probable subsegmental discoid atelectasis with or without left basal linear scarring. Accentuated with rightward projection. Clinical follow-up recommended.
--- NOTE | 2018-03-17 11:25 | CT ---
Date of service: 03/16/2018 PROCEDURE: CT Abdomen and Pelvis without intravenous contrast HISTORY: abd pain, vomiting COMPARISON: None. TECHNIQUE: Without contrast.. Contrast dose: Radiation dose: Total exam DLP = 962.78 mGy-cm. This CT exam was performed using one or more of the following dose reduction techniques: Automated exposure control, adjustment of the mA and/or kV according to patient size, and/or use of iterative reconstruction technique. FINDINGS: LOWER THORAX: Aortic and coronary artery calcification. LIVER: Unremarkable. No gross lesion or ductal dilatation. GALLBLADDER AND BILE DUCTS: Unremarkable. PANCREAS: Unremarkable. No gross lesion or ductal dilatation. SPLEEN: Unremarkable. ADRENALS: Unremarkable. No mass. KIDNEYS AND URETERS: Unremarkable. No hydronephrosis. No solid mass. Multiple cysts in both kidneys. VASCULATURE: Unremarkable. No aortic aneurysm. Aortic calcification BOWEL: Unremarkable. No obstruction. No gross mural thickening. Diverticulosis of the sigmoid colon APPENDIX: Unremarkable. Normal appendix. PERITONEUM: Unremarkable. No free fluid. No free air. LYMPH NODES: Unremarkable. No enlarged lymph nodes. BLADDER: Unremarkable. REPRODUCTIVE: Unremarkable. BONES: No acute fracture. OTHER FINDINGS: None. IMPRESSION: No acute intra-abdominal findings.
--- NOTE | 2018-03-17 12:02 | CARD ---
APPROVED REPORT Date of service: 03/16/2018 EKG Measurement Heart [id number] <Conclusion> Normal sinus rhythm Normal ECG
== END 2018-03-17 01:00 | disposition home or self-care (01) ==
LOC: ED 20:25
DX: K44.9 Diaphragmatic hernia without obstruction or gangrene (principal); I12.0 Hypertensive chronic kidney disease with stage 5 chronic kidney disease or end stage renal disease; E11.22 Type 2 diabetes mellitus with diabetic chronic kidney disease; I69.351 Hemiplegia and hemiparesis following cerebral infarction affecting right dominant side; N18.6 End stage renal disease; Z99.2 Dependence on renal dialysis; F17.210 Nicotine dependence, cigarettes, uncomplicated

== ENCOUNTER 2018-05-24 15:29 | Observation (INO) | payer MEDICARE, OTHER ==
[2018-05-24 16:56] LABS: BASO # 0.01 K/mm3 (0.0-2.0); BASO % 0.2 % (0.0-3.0); EOS # 0.1 (0.0-0.7); EOS % 0.8 % (1.5-5.0); HEMOGLOBIN 12.3 g/dL (14.0-18.0); LYMPH # 1.1 (1.2-3.4); LYMPH % 18.3 % (22.0-35.0); MEAN CELL VOLUME 93.9 fl (80.0-105.0); MEAN CORPUSCULAR HEMOGLOBIN 29.1 pg (25.0-35.0); MEAN PLATELET VOLUME 9.5 fl (7.0-11.0); MONO # 0.2 (0.1-0.6); MONO % 3.7 % (1.0-6.0); RBC 4.23 10^6/uL (3.5-6.1); RED CELL DISTRIBUTION WIDTH 14.8 % (11.5-14.5); WHITE BLOOD COUNT 5.9 10^3/uL (4.5-11.0)
[2018-05-24 17:24] LABS: ALB/GLOB RATIO 1.1 (1.1-1.8); ALBUMIN 3.9 g/dL (3.0-4.8); CALCIUM 9.7 mg/dL (8.4-10.5)
--- NOTE | 2018-05-24 17:50 | ED PDOC ---
Arrival/HPI - General Chief Complaint: Trauma Time Seen by Provider: 05/24/18 15:47 Historian: Patient, EMS - History of Present Illness Narrative History of Present Illness (Text): 05/24/18 68 yo male w/PMHx of ESRD on HD, IDDM, HTN, CVA with Right residual hemiparesis, slurred speech, BIBA from dialysis for evaluation of Right forehead injury and Right shoulder/hand swelling developed since yesterday after sustained fall. As per pt, "slipped and touched my face over the table". admits, noted some swelling over right hand and feel more cold to touch. Otherwise, pt and denies LOC, syncope, severe headache, visual changes, neck pain, CP, SOB, palpitation, V/D, denies obvious deformity, bruising. AT the time of evaluation, pt denies any active complaints/pain. Off note: pt did not complete dialysis today. Past Medical History - Provider Review Nursing Documentation Reviewed: Yes - Travel History Have you recently traveled outside [place] w/in the past 3 mons?: No - Past History Past History: No Previous - Infectious Disease Hx of Infectious Diseases: None - Cardiac Hx Cardiac Disorders: Yes (angioplasty 1989) Hx Hypertension: Yes - Pulmonary Hx Respiratory Disorders: No - Neurological Hx Neurological Disorder: Yes (short term memory loss) HX Cerebrovascular Accident: Yes (around 1991 right side weakness) Hx Dizziness: Yes (syncope) Hx Transient Ischemic Attacks (TIA): Yes (several) Other/Comment: poor hand eye coordination, pt suffered heat stroke and when brought to the hospital was found to have had several small strokes in the past, pt was unaware, headaches, slurred speech, peripheral neuropathy, right side paralysis, numbness. - HEENT Hx HEENT Disorder: Yes (ringing in the ears) - Renal Hx Renal Disorder: Yes Hx Dialysis: Yes Date of Last Dialysis Treatment: 11/18/17 - Endocrine/Metabolic Hx Endocrine Disorders: Yes Hx Diabetes Mellitus Type 1: Yes - Hematological/Oncological Hx Blood Disorders: Yes Hx Blood Transfusions: Yes - Integumentary Hx Dermatological Disorder: Yes Other/Comment: bottom of feet and toes have dryed brown skin bilateral - Musculoskeletal/Rheumatological Hx Musculoskeletal Disorders: No Hx Falls: No - Gastrointestinal Hx Gastrointestinal Disorders: Yes - Genitourinary/Gynecological Hx Genitourinary Disorders: No - Psychiatric Hx Psychophysiologic Disorder: No Hx Depression: No Hx Emotional Abuse: No Hx Physical Abuse: No Hx Substance Use: No - Surgical History Hx Appendectomy: Yes Other/Comment: right arm dialysis fistula - Anesthesia Hx Anesthesia: Yes Hx Anesthesia Reactions: No (UNKNOWN) Hx Malignant Hyperthermia: (UNKNOWN) - Suicidal Assessment Feels Threatened In Home Enviroment: No Family/Social History - Physician Review Nursing Documentation Reviewed: Yes Family/Social History: No Known Family HX Smoking Status: Light Smoker < 10 Cigarettes Daily Hx Alcohol Use: No Hx Substance Use: No Hx Substance Use Treatment: No Allergies/Home Meds Allergies/Adverse Reactions: Allergies No Known Allergies Allergy (Verified 03/16/18 20:41) Home Medications: Home Meds Medication Instructions Recorded Confirmed Enalapril Maleate 20 mg PO BID 10/22/11 03/16/18 Meclizine HCl [Antivert] 25 mg PO PRN PRN 10/22/11 03/16/18 Tamsulosin [Flomax] 0.4 mg PO DAILY 10/22/11 03/16/18 Cinacalcet [Sensipar] 60 mg PO DAILY 10/02/17 03/16/18 Fenofibrate Nanocrystallized 150 mg PO DAILY 10/02/17 03/16/18 [Triglide] Lamotrigine [Lamictal (Blue)] 50 mg PO DAILY 10/02/17 03/16/18 Niacin [Niacin ER] 500 mg PO DAILY 10/02/17 03/16/18 [place]-3S/Dha/Epa/Fish Oil [Fish 1 each PO DAILY 10/02/17 03/16/18 Oil 1,200 mg Softgel] Pravastatin Sodium [Pravachol] 40 mg PO BID 10/02/17 03/16/18 Sevelamer Carbonate [Renvela] 800 mg PO TID 10/02/17 03/16/18 Ubidecarenone [Coenzyme Q10] 400 mg PO DAILY 10/02/17 03/16/18 Insulin Lispro Protamin/Lispro 25 units INJ DAILY 03/16/18 03/16/18 [Humalog Mix 75-25 Kwikpen] Sennosides/Docusate Sodium [Ra 1 tab PO DAILY 03/16/18 03/16/18 Senna Plus Tablet] Review of Systems - Physician Review All systems were reviewed & negative as marked: Yes - Review of Systems Musculoskeletal: Arthralgias Neurological: absent: Headache, Focal Weakness Psychiatric: Normal Physical Exam Vital Signs Reviewed: Yes Vital Signs Temp Pulse Resp BP Pulse Ox 05/24/18 15:39 97.5 F L 67 18 148/59 L 96 Temperature: Afebrile Blood Pressure: Normal Pulse: Regular Respiratory Rate: Normal Appearance: Positive for: Well-Appearing, Non-Toxic, Comfortable Pain Distress: None Mental Status: Positive for: Alert and Oriented X 3 Finger Stick Blood Glucose: 277 - Systems Exam Head: Present: Atraumatic, Normocephalic, Tenderness (mild Right forehead, no edema or contusion noted, no palpable deformity) Pupils: Present: PERRL Conjunctiva: Present: Normal Ears: Present: Normal Canal (B/L) Nose (Internal): No: Septal Deviation, Septal Hematoma Neck: Present: Trachea Midline. No: MIDLINE TENDERNESS Respiratory/Chest: Present: Clear to Auscultation, Good Air Exchange. No: Respiratory Distress, Accessory Muscle Use Cardiovascular: Present: Regular Rate and Rhythm, Normal S1, S2 Abdomen: No: Tenderness, Distention, Normal Bowel Sounds Upper Extremity: Present: Tenderness (mild over superior aspect Right shoulder. No palpabel deformity), Swelling (trace edema dorsal aspect Right hand. No deformity. FAROM), Other (Right forearm AV fistula, (+) thrill, no edema, no erythema) Lower Extremity: Present: Normal ROM. No: Tenderness, Deformity Neurological: Present: Other (weakness to Right UE and LE due to previous CVA compare to Left UE and LE.) Skin: Present: Warm, Normal Color. No: Erythematous, Abrasion Psychiatric: Present: Alert Medical Decision Making ED Course and Treatment: 05/24/18 Case discussed with pt's PMD DR. Ramirez and admission recommend for OBS with consult Neurology and neph Admission to arranged Pt and family notified about results and plan. - Lab Interpretations Lab Results: Total Bilirubin 0.4 mg/dL (0.2-1.3) 05/24/18 16:40 AST 16 U/L (17-59) L 05/24/18 16:40 ALT 13 U/L (7-56) 05/24/18 16:40 Alkaline Phosphatase 66 U/L (38-126) 05/24/18 16:40 Total Protein 7.3 g/dL (5.8-8.3) 05/24/18 16:40 Albumin 3.9 g/dL (3.0-4.8) 05/24/18 16:40 Globulin 3.4 gm/dL 05/24/18 16:40 Albumin/Globulin Ratio 1.1 (1.1-1.8) 05/24/18 16:40 - RAD Interpretation Narrative RAD Interpretations (Text): 05/24/18 19:06 Parts Room Associate : Laisha Gomez MD Approver2 : Report Date : 05/24/2018 18:06:38 My Comment : Date of service: 05/24/2018 PROCEDURE: CT HEAD WITHOUT CONTRAST. HISTORY: injury COMPARISON: Noncontrast head CT performed 11/18/17, MRI brain without contrast performed 11/19/17 TECHNIQUE: Axial computed tomography images were obtained through the head/brain without intravenous contrast. Radiation dose: Total exam DLP = 881.44 mGy-cm. This CT exam was performed using one or more of the following dose reduction techniques: Automated exposure control, adjustment of the mA and/or kV according to patient size, and/or use of iterative reconstruction technique. FINDINGS: HEMORRHAGE: No intracranial hemorrhage. BRAIN: Diffuse atrophy with prominence of the ventricles and sulci noted. No mass effect or edema. Intracranial atherosclerosis. Dense calcification re-identified within the left pineda. Limited visualization of elliptical shaped dural based mass in the right frontal region previously characterized as meningioma; further evaluation with MRI suggested. Scattered bilateral lacunar type infarcts appear chronic. Moderate to severe scattered periventricular and subcortical white matter hypodensities, which are nonspecific, but often seen with chronic microvascular ischemic disease. Please note that MRI with diffusion imaging is more sensitive in the detection of acute ischemic event. VENTRICLES: No hydrocephalus. CALVARIUM: Unremarkable. PARANASAL SINUSES: Unremarkable as visualized. No significant inflammatory changes. MASTOID AIR CELLS: Unremarkable as visualized. No inflammatory changes. OTHER FINDINGS: None. IMPRESSION: Dense calcification re-identified within the left pineda. Limited visualization of elliptical shaped dural based mass in the right frontal region previously characterized as meningioma; further evaluation with MRI suggested. Moderate to severe nonspecific white matter changes. Scattered bilateral lacunar type infarcts. Radiology Orders: 05/24/18 15:59 HEAD W/O CONTRAST [CT] Stat 05/24/18 16:00 HUMERUS RIGHT [RAD] Stat SHOULDER RIGHT [RAD] Stat Right shoulder and humeru (-) acute fx or dislocation Disposition/Present on Arrival - Present on Arrival Any Indicators Present on Arrival: No History of DVT/PE: No History of Uncontrolled Diabetes: No Urinary Catheter: No History of Decub. Ulcer: No History Surgical Site Infection Following: None - Disposition Have Diagnosis and Disposition been Completed?: Yes Diagnosis: ESRD (end stage renal disease) on dialysis, Head injury, Right hand paresthesia Disposition: HOSPITALIZED Disposition Time: 17:40 Patient Plan: Observation Patient Problems: Current Active Problems Problem Status Onset ESRD (end stage renal disease) on dialysis Acute Head injury Acute Right hand paresthesia Acute Condition: STABLE Forms: [employer] ([place])
--- NOTE | 2018-05-24 18:10 | CT ---
Date of service: 05/24/2018 PROCEDURE: CT HEAD WITHOUT CONTRAST. HISTORY: injury COMPARISON: Noncontrast head CT performed 11/18/17, MRI brain without contrast performed 11/19/17 TECHNIQUE: Axial computed tomography images were obtained through the head/brain without intravenous contrast. Radiation dose: Total exam DLP = 881.44 mGy-cm. This CT exam was performed using one or more of the following dose reduction techniques: Automated exposure control, adjustment of the mA and/or kV according to patient size, and/or use of iterative reconstruction technique. FINDINGS: HEMORRHAGE: No intracranial hemorrhage. BRAIN: Diffuse atrophy with prominence of the ventricles and sulci noted. No mass effect or edema. Intracranial atherosclerosis. Dense calcification re-identified within the left pineda. Limited visualization of elliptical shaped dural based mass in the right frontal region previously characterized as meningioma; further evaluation with MRI suggested. Scattered bilateral lacunar type infarcts appear chronic. Moderate to severe scattered periventricular and subcortical white matter hypodensities, which are nonspecific, but often seen with chronic microvascular ischemic disease. Please note that MRI with diffusion imaging is more sensitive in the detection of acute ischemic event. VENTRICLES: No hydrocephalus. CALVARIUM: Unremarkable. PARANASAL SINUSES: Unremarkable as visualized. No significant inflammatory changes. MASTOID AIR CELLS: Unremarkable as visualized. No inflammatory changes. OTHER FINDINGS: None. IMPRESSION: Dense calcification re-identified within the left pineda. Limited visualization of elliptical shaped dural based mass in the right frontal region previously characterized as meningioma; further evaluation with MRI suggested. Moderate to severe nonspecific white matter changes. Scattered bilateral lacunar type infarcts.
[2018-05-24 23:24] VITALS: RESP 18
[2018-05-24 23:46] VITALS: BMI 28.8
[2018-05-25] MEDS: Pantoprazole 40 mg EC Tab PO SCH ×2 (05:23→17:20)
--- NOTE | 2018-05-25 06:45 | CP.PCM.HP ---
History of Present Illness - History of Present Illness History of Present Illness: IM resident H&P for Dr. 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 Patient states he has gait instability and right sided weakness from the prior stroke, thus he spends most of his time on the bed. Pt fell when he tried to get out of bed unassisted. Denies dizziness, seizure like activity, urine or bladder incontinent. Admits to hitting his head and the right side of his body. Denies headache. Patient also missed his dialysis yesterday thus he was admitted for HD. This morning, patient denies cp, sob, no nausea, vomiting or diarrhea. No fever or chills. Denies any new weakness. 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 Allergies: Denies Social history: Denies EtOH, tobacco or drug use. Lives with and 2 sons who take care of him Present on Admission - Present on Admission Any Indicators Present on Admission: No History of DVT/PE: No History of Uncontrolled Diabetes: No Urinary Catheter: No Decubitus Ulcer Present: No Review of Systems - Review of Systems All systems: reviewed and no additional remarkable complaints except Review of Systems: 10 point ROS obtained, all negative except as per HPI. Past Patient History - Infectious Disease Hx of Infectious Diseases: None - Tetanus Immunizations Tetanus Immunization: Unknown - Past Social History Smoking Status: Light Smoker < 10 Cigarettes Daily Alcohol: None Drugs: Denies Home Situation {Lives}: With Family - CARDIAC Hx Cardiac Disorders: Yes (angioplasty 1989) Hx Hypercholesterolemia: Yes Hx Hypertension: Yes - PULMONARY Hx Respiratory Disorders: No - NEUROLOGICAL Hx Neurological Disorder: Yes (short term memory loss) HX Cerebrovascular Accident: Yes (around 1991 right side weakness) Hx Dizziness: Yes (syncope) Hx Transient Ischemic Attacks (TIA): Yes (several) Other/Comment: poor hand eye coordination, pt suffered heat stroke and when brought to the hospital was found to have had several small strokes in the past, pt was unaware, headaches, slurred speech, peripheral neuropathy, right side paralysis, numbness. - HEENT Hx HEENT Problems: Yes (ringing in the ears) - RENAL Hx Chronic Kidney Disease: Yes Hx Dialysis: Yes - ENDOCRINE/METABOLIC Hx Endocrine Disorders: Yes Hx Diabetes Mellitus Type 1: Yes - HEMATOLOGICAL/ONCOLOGICAL Hx Blood Disorders: Yes - INTEGUMENTARY Hx Dermatological Problems: Yes Other/Comment: bottom of feet and toes have dryed brown skin bilateral - MUSCULOSKELETAL/RHEUMATOLOGICAL Hx Musculoskeletal Disorders: No Hx Falls: Yes - GASTROINTESTINAL Hx Gastrointestinal Disorders: Yes - GENITOURINARY/GYNECOLOGICAL Hx Genitourinary Disorders: No - PSYCHIATRIC Hx Psychophysiologic Disorder: No Hx Depression: No Hx Emotional Abuse: No Hx Physical Abuse: No - SURGICAL HISTORY Hx Appendectomy: Yes Other/Comment: right arm dialysis fistula - ANESTHESIA Hx Anesthesia: Yes Hx Anesthesia Reactions: No (UNKNOWN) Hx Malignant Hyperthermia: (UNKNOWN) Meds Allergies/Adverse Reactions: Allergies Allergy/AdvReac Type Severity Reaction Status Date / Time No Known Allergies Allergy Verified 03/16/18 20:41 Physical Exam - Constitutional Appears: No Acute Distress, Chronically Ill - Head Exam Head Exam: ATRAUMATIC, NORMAL INSPECTION, NORMOCEPHALIC - Eye Exam Eye Exam: EOMI, Normal appearance, PERRL. absent: Scleral icterus Pupil Exam: NORMAL ACCOMODATION - ENT Exam ENT Exam: Mucous Membranes Moist - Neck Exam Neck exam: Positive for: Normal Inspection - Respiratory Exam Respiratory Exam: Clear to Auscultation Bilateral, NORMAL BREATHING PATTERN. absent: Rales, Rhonchi, Wheezes, Respiratory Distress, Stridor - Cardiovascular Exam Cardiovascular Exam: REGULAR RHYTHM, RRR, +S1, +S2, Systolic Murmur. absent: Diastolic murmur, Gallop, JVD, Rubs - GI/Abdominal Exam GI & Abdominal Exam: Normal Bowel Sounds, Soft. absent: Distended, Firm, Guarding, Rebound, Rigid, Tenderness - Extremities Exam Extremities exam: Positive for: normal inspection. Negative for: pedal edema, tenderness - Back Exam Back exam: rash noted - Neurological Exam Neurological exam: Alert, Oriented x3 - Psychiatric Exam Psychiatric exam: Normal Affect, Normal Mood - Skin Skin Exam: Dry, Rash, Warm Results - Vital Signs Recent Vital Signs: Last Vital Signs Temp 98.4 F 05/24/18 23:24 Pulse 71 05/24/18 23:24 Resp 18 05/24/18 23:24 BP 173/78 H 05/24/18 23:24 Pulse Ox 94 L 05/24/18 23:24 - Labs Result Diagrams: 05/24/18 16:40 05/24/18 16:40 Labs: Laboratory Results - last 24 hr 05/24/18 05/24/18 05/24/18 16:00 16:40 16:40 WBC 5.9 D RBC 4.23 Hgb 12.3 L Hct 39.7 L MCV 93.9 MCH 29.1 MCHC 31.0 RDW 14.8 H Plt Count 194 MPV 9.5 Neut % (Auto) 77.0 H Lymph % (Auto) 18.3 L [place] % (Auto) 3.7 Eos % (Auto) 0.8 L Baso % (Auto) 0.2 Lymph # (Auto) 1.1 L [place] # (Auto) 0.2 Eos # (Auto) 0.1 Baso # (Auto) 0.01 Absolute Neuts (auto) 4.55 Sodium 135 Potassium 4.9 Chloride 95 L Carbon Dioxide 30 Anion Gap 16 BUN 73 H Creatinine 8.7 H* Est GFR ( Amer) 7 Est GFR (Non-Af Amer) 6 POC Glucose (mg/dL) 277 H Random Glucose 245 H Calcium 9.7 Magnesium 2.4 H Total Bilirubin 0.4 AST 16 L ALT 13 Alkaline Phosphatase 66 Total Protein 7.3 Albumin 3.9 Globulin 3.4 Albumin/Globulin Ratio 1.1 05/25/18 00:14 WBC RBC Hgb Hct MCV MCH MCHC RDW Plt Count MPV Neut % (Auto) Lymph % (Auto) [place] % (Auto) Eos % (Auto) Baso % (Auto) Lymph # (Auto) [place] # (Auto) Eos # (Auto) Baso # (Auto) Absolute Neuts (auto) Sodium Potassium Chloride Carbon Dioxide Anion Gap BUN Creatinine Est GFR ( Amer) Est GFR (Non-Af Amer) POC Glucose (mg/dL) 257 H Random Glucose Calcium Magnesium Total Bilirubin AST ALT Alkaline Phosphatase Total Protein Albumin Globulin Albumin/Globulin Ratio Assessment & Plan - Assessment and Plan (Free Text) Assessment: 1) Mechanical fall 2) ESRD on HD 3) H/o CVA with right sided residual weakness 4) HLD 5) H/O TIA 6) IDDM2 7) Right frontal benign hemangioma 8) Secondary hyperparathyroidism 9) h/o seizure disorder 10) BPH 11) gerd 12) htn Plan: Patient had CT head which revealed scattered bilateral lacunar infarct, which were also seen on CT head from 11/18/17. MRI from 11/19/17 with benign hemangioma. X-ray of the right humerus and shoulder with no fractures. Nephrology is consulted for HD today. Will continue with lipitor for hld. on sensipar for secondary hyperparathyroidism. On lamictal for seizure disorders. Also on renagel. Continue with flomax for BPH and protonix for gerd. Will hold enalapril and start lisinopril for htn. Patient will be discharged home after HD. Left a message for patient's Bekah to update her on patient's condition and discharge planning, awaiting response. Patient seen, examined and case discussed with Dr. Oden. - Date & Time Date: 05/25/18 Time: 10:05
[2018-05-25 07:47] VITALS: BP 161/74; PULSE 72; TEMP 97.7; O2SAT 95
[2018-05-25] MEDS: Insulin Reg-MEDIUM-Coverage SC SCH ×3 (08:43→17:19)
--- NOTE | 2018-05-25 09:52 | RAD ---
Date of service: 05/24/2018 PROCEDURE: Radiographs of the Right Shoulder HISTORY: injury COMPARISON: No prior. TECHNIQUE: 3 views obtained. FINDINGS: BONES: No acute fracture. Globular calcification is noted adjacent to the humeral head consistent with calcific tendinitis. JOINTS: Normal. Glenohumeral and acromioclavicular joints preserved. No osteoarthritis. SOFT TISSUES: Normal. OTHER FINDINGS: None. IMPRESSION: No acute fracture. Calcific tendinitis.
--- NOTE | 2018-05-25 09:53 | RAD ---
PROCEDURE: Radiographs of the right humerus. HISTORY: injury COMPARISON: None. TECHNIQUE: 2 views obtained. FINDINGS: BONES: Normal. No fracture or focal lesion. SOFT TISSUES: Normal. OTHER FINDINGS: None. IMPRESSION: Normal radiographs of right humerus.
[2018-05-25] MEDS ORDERED: Non Formulary Medication (Pravastatin Sodium [Pravachol] 40 MG) PO SCH (10:00)
--- NOTE | 2018-05-25 11:55 | CP.PCM.PCO ---
Physician Communication Note - Physician Communication Note Physician Communication Note: Possible dc home once cleared by neuro.
--- NOTE | 2018-05-25 14:24 | CP.PCM.PCO ---
Physician Communication Note - Physician Communication Note Physician Communication Note: cleared for home once carotid is read.
--- NOTE | 2018-05-25 15:42 | CON ---
DATE: 05/25/2018 NEUROLOGY CONSULT CHIEF COMPLAINT: Status post fall, missed hemodialysis, and history of paraesthesia. HISTORY OF PRESENT ILLNESS: This is a 68-year-old male with past medical history of end-stage renal disease on hemodialysis on Thursday, Thursday, Thursday; hypertension; hyperlipidemia; history with left hemorrhagic infarct in the pineda due to residual right-side weakness, history of right small frontal meningioma, type 2 diabetes mellitus, TIA, garbled speech, apparently had a mechanical fall. He prior CVA. He spends most of his time on the bed. He tried to get out of bed unassisted and fallen to the floor, hit his head, but no loss of consciousness. He also missed his dialysis yesterday. Thus he was admitted for hemodialysis. Currently he is at his baseline, no further seizure, he is on lamotrigine for his underlying seizures 100 mg p.o. q.a.m. and 50 mg p.o. every at bedtime. He has undergone a carotid Doppler which results currently pending. 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 PAST SURGICAL HISTORY: AV fistula. HOME MEDICATIONS: Reviewed by nurse's reconciliation sheet. ALLERGIES: NO KNOWN DRUG ALLERGIES. SOCIAL HISTORY: No illicit drug use, smoking or EtOH abuse. He lives with his . Two sons who take care of him. FAMILY HISTORY: Noncontributory. PHYSICAL EXAMINATION: VITAL SIGNS: Temperature 97.7, pulse rate 72, blood pressure 164/74, respiratory rate 18 and oxygen saturation 95% on room air. GENERAL: The patient is sitting up in bed, in no acute distress. HEENT: Head is atraumatic and normocephalic. PERRLA. Extraocular muscles intact. NECK: Supple. No JVD. No adenopathy noted. LUNGS: Clear to auscultation. No adventitious sounds. HEART: S1 and S2. Normal rate rhythm. No murmurs, rubs or gallops. ABDOMEN: Soft and nontender. Nondistended. Bowel sounds present. EXTREMITIES: No clubbing. No cyanosis. Peripheral pulses 2+ bilaterally. NEUROLOGIC: The patient is alert, oriented to person and place. Recall after 5 minutes is 0/3. Poor attention span. Slow thought process. He has had mild dysarthria from prior CVA. Motor exam; has residual right side weakness from prior CVA which is positive in nature. Toes are downgoing bilaterally. Sensory: Light touch, pinprick, proprioception and vibration are intact. DTRs are 2+ throughout and 1 at both knees and ankles. Coordination: [id number] intact. No dysmetria noted. Gait is deferred for now. LABORATORY DATA: Sodium is 135, potassium 4.9, chloride 95, carbon dioxide 30, BUN of 73, creatinine 8.7 and random glucose 245. IMPRESSION: A 68-year-old male with history of left hemorrhagic infarct pineda with residual right-sided spastic weakness, history of right small frontal meningioma, type 2 diabetes mellitus, seizure disorder on Lamictal 100 mg p.o. q.a.m. and 50 mg p.o. at bedtime, dyslipidemia, hypertension, had a mechanical fall in addition he had missed the hemodialysis who was admitted. The patient is currently back at baseline. RECOMMENDATIONS: 1. Carotid Doppler to assess for any coronary artery disease given his history of CVA as well as hypertension. 2. Recommend aspirin 81 and Lipitor 40 for stroke prevention and carotid artery disease. 3. Outpatient PT and OT and continue to monitor electrolytes and followup with this primary care hemodialysis. Thank you for this consult. He is clinically stable from my standpoint. Tristen Holland MD
[2018-05-25 16:38] LABS: HEPATITIS B SURFACE AG Negative (NEGATIVE)
[2018-05-25 16:43] LABS: HEPATITIS B CORE AB NEGATIVE (NEGATIVE)
--- NOTE | 2018-05-25 17:33 | US ---
PROCEDURE: Bilateral carotid artery duplex ultrasound HISTORY: Carotid stenosis PHYSICIAN(S): True Mejia MD. TECHNIQUE: Duplex sonography and color-flow Doppler were used to evaluate the carotid bifurcations and limited segments of the vertebral arteries bilaterally. FINDINGS: There is moderate diffuse heterogeneous echogenic plaque noted at the carotid bifurcations bilaterally. The peak systolic velocity in the proximal right internal carotid artery is 71 cm/sec. This corresponds to a 20 to 39% proximal right ICA stenosis. Moderately elevated systolic velocities are noted in the proximal right external carotid artery. There is antegrade flow in the right vertebral artery. The peak systolic velocity in the proximal left internal carotid artery is 98 cm/sec. This corresponds to a 20 to 39% proximal left ICA stenosis. Mildly elevated systolic velocities are noted in the proximal left external carotid artery. There is antegrade flow in the left vertebral artery. IMPRESSION: 1. Bilateral 20-39% proximal ICA stenoses. 2. Antegrade flow in both vertebral arteries.
--- NOTE | 2018-05-25 19:13 | CON ---
DATE OF CONSULTATION: 05/25/2018 The patient is admitted for Dr. Skaggs. REFERRING MD: Dr. Skaggs. REASON FOR CONSULTATION: Evaluation of a patient, known to me from outpatient dialysis, who presents after having had a fall at home. The patient was admitted to observation status only. HISTORY OF PRESENT ILLNESS: The patient is a pleasant 68-year-old white male with history of end-stage renal disease on chronic maintenance hemodialysis Thursday, Thursday and Thursday, history of hypertension, history of a left-sided CVA with right-sided weakness, history of anemia secondary to chronic kidney disease, history of secondary hyperparathyroidism, past history of TIAs. The patient has a working right upper extremity AV fistula. The patient had dialysis on 05/24/2018. The patient apparently had no episodes of syncope, but did have a fall at home, hit the right side of his head, he was brought to the hospital for evaluation and observation. The patient had a head CT scan, which showed an old left-sided CVA and a right frontal lesion possibly consistent with a meningioma. No evidence for a subdural or intracerebral bleed. With observation, the patient appears to be at baseline. He had just completed a noninvasive carotid study. If that report is unremarkable, the patient will likely be discharged home later today. PAST MEDICAL HISTORY: Significant for end-stage renal disease, hypertension, status post left-sided CVA with right-sided weakness, anemia secondary to chronic kidney disease, secondary hyperparathyroidism, past history of TIAs. MEDICATIONS AT HOME: Include that of coenzyme Q10, Flomax, Renvela, stool softener, Pravachol, Protonix, fish oil, niacin, Antivert, Lamictal Blue, sliding-scale insulin, Triglide, Vasotec, and Sensipar. ALLERGIES: NO KNOWN ALLERGIES TO MEDICATIONS. CURRENT MEDICATIONS IN HOSPITAL: Include that of Flomax, sliding-scale insulin, Lamictal, Lipitor, Protonix, Renagel, Sensipar, and lisinopril. SOCIAL HISTORY: No history of cigarette smoking. No history of alcohol use. FAMILY HISTORY: Noncontributory. REVIEW OF SYSTEMS: Ten plus systems reviewed with the patient. All negative except for what is noted above. PHYSICAL EXAMINATION: GENERAL: The patient is currently seen eating a snack after having completed his noninvasive carotid Doppler study. He appears to be back to baseline and is in no acute distress. VITAL SIGNS: Blood pressure presently is ranging from 141-161 systolic with a diastolic of 62-74. Temperature 97.7, respiratory rate 18 with a pulse of 72. HEENT: Exam shows him to be normocephalic, atraumatic. No evidence for right frontal head trauma. Pupils equal and reactive to light and accommodation. Extraocular muscles are intact. Posterior pharynx is normal. Conjunctivae are pink. Sclerae are nonicteric. NECK: Supple. No neck vein distention. No thyromegaly. No lymphadenopathy. No bruits. CHEST: Clear to auscultation and percussion. No rales, rhonchi, or wheezing. CARDIOVASCULAR: Shows a regular rate and rhythm without audible murmurs, rubs, or gallops. ABDOMEN: Soft. Bowel sounds normal. No rebound, guarding, or masses. EXTREMITIES: Show a working right upper extremity AV fistula. Positive thrill. Positive bruit. No lower extremity cyanosis, clubbing, or edema. Distal lower extremity pulses are 1 to 2+ bilaterally. NEURO: Shows him to have weakness of the right upper extremity and right lower extremity consistent with his past left-sided CVA with no changes. LABORATORY DATA AND IMAGING STUDIES: Admitting head CT scan showed a left pontine infarct, which is calcified. He also has a right frontal lesion consistent with a perhaps of meningioma. No evidence for bleeding. Noninvasive carotid Doppler study report is pending. Labs: CBC, white blood cell count 5.9, hemoglobin 12.3 with a platelet count of 194,000. Chemistries showed normal electrolytes. BUN 73 with a creatinine of 8.7 from yesterday. Glucose 245, magnesium 2.4. Microbiology, no cultures were sent. ASSESSMENT: 1. Status post a fall at home without any evidence for syncope, and no evidence for any neurologic deficits other than that of his baseline. Pending his noninvasive carotid study report, the patient will likely be discharged home. He can receive his routine hemodialysis at his outpatient dialysis unit tomorrow, on 05/26/2018. 2. History of end-stage renal disease. Continue Thursday, Thursday and Thursday dialysis at [facility] in [place]. 3. History of hypertension. Blood pressure control is acceptable. The patient may continue on lisinopril. 4. History of insulin-dependant diabetes mellitus. Glucose control has been acceptable. The patient will continue his outpatient regimen upon discharge. 5. Past history of a left-sided cerebrovascular accident with right-sided weakness. This is stable. 6. History of anemia in part secondary to chronic kidney disease. The patient will continue receiving erythropoietin and iron supplements as per routine with outpatient dialysis. 7. History of secondary hyperparathyroidism. Continue renal diet, binder therapy, and Sensipar. PLAN: 1. From a renal standpoint, the patient may be discharged to outpatient dialysis. 2. We will make certain that the patient receives no heparin with dialysis in the outpatient setting in light of his recent head trauma. 3. Continue all medications the patient was taking prior to this admission. 4. We will see the patient in the outpatient hemodialysis unit tomorrow. Thank you for letting us partake and share in the care of our mutual patient. Rigo Norman MD
--- NOTE | 2018-05-25 20:28 | CP.PCM.PCO ---
Summary - Summary of Event Summary of Event: House Resident Note Kamari Álvarez DO, IM PGY-3 Called by nursing to write script for patient being discharged. As per Neuro's rec's, pt to originally be discharged home on aspirin, but due to history of GI bleed, changed recommendation to 75mg PO Plavix daily. Prescription written for 30 day supply, pt instructed to follow up with PMD for further prescriptions/refills. Script written, given to nursing. Order added to Ambulatory orders in chart as well. House physician, Dr. Balderas, aware of request for script and agrees.
--- NOTE | 2018-05-26 08:30 | HP ---
DATE OF EXAM: 05/25/2018 NOTE: The patient was seen and examined. H and P reviewed and agreed. The patient is a 68-year-old, who is not very ambulatory. He states he was trying to pickle processor the paper, he lost balance and he fell on his left side. He had x-rays done that are unremarkable for any fracture. He does have a history of end-stage renal disease on hemodialysis, hypertension, CVA with residual right-sided weakness. He also missed dialysis, so the patient received hemodialysis today and he was also evaluated by Dr. Holland, his workup including x-rays and CT scan of the head. CT scan of the head only showed calcification within the left pineda. So after he was evaluated by Dr. Holland, who recommended aspirin, but the patient and family state that he was told in the past because of bleeding ulcer that he should not be taking aspirin, so it was switched to Plavix and he will discharge home on Plavix. He will resume his medications as per APR. Thomas Oden MD
== END 2018-05-25 20:45 | disposition home or self-care (01) ==
LOC: ED 15:29 → ERH 17:45 → 5RSO 22:38
PROVIDERS: ADMIT Internal Medicine Nephrology; ATTEND Internal Medicine Nephrology
DX: S09.90XA Unspecified injury of head, initial encounter (principal); M25.411 Effusion, right shoulder; M79.89 Other specified soft tissue disorders; W18.30XA Fall on same level, unspecified, initial encounter; I12.0 Hypertensive chronic kidney disease with stage 5 chronic kidney disease or end stage renal disease; N18.6 End stage renal disease; E11.22 Type 2 diabetes mellitus with diabetic chronic kidney disease; E78.00 Pure hypercholesterolemia, unspecified; E78.5 Hyperlipidemia, unspecified; G40.909 Epilepsy, unspecified, not intractable, without status epilepticus; I69.351 Hemiplegia and hemiparesis following cerebral infarction affecting right dominant side; K21.9 Gastro-esophageal reflux disease without esophagitis; N25.81 Secondary hyperparathyroidism of renal origin; N40.0 Benign prostatic hyperplasia without lower urinary tract symptoms; D18.00 Hemangioma unspecified site; D63.1 Anemia in chronic kidney disease; H93.13 Tinnitus, bilateral; Y92.009 Unspecified place in unspecified non-institutional (private) residence as the place of occurrence of the external cause; Z79.4 Long term (current) use of insulin; F17.210 Nicotine dependence, cigarettes, uncomplicated; Z90.49 Acquired absence of other specified parts of digestive tract; Z99.2 Dependence on renal dialysis
CPT/HCPCS: 36415; 70450; 73030; 73060; 80053; 82948; 83735; 85025; 86705; 86706; 87340; 93880; 99285; G0378